=== PATIENT | male | born 1960 | race Caucasian/White ===

== ENCOUNTER 2022-09-26 13:29 | Inpatient (IN) | payer MEDICAID, SELFPAY ==
[2022-09-26] VITALS (24 sets, daily range): BP systolic 150–177; BP diastolic 87–121; PULSE 84–114; RESP 18–22; TEMP 36.4–36.7; O2SAT 88–99; BMI 32.9; BMI 31.5
--- NOTE | 2022-09-26 13:59 | CRLHL7_ITS ---
For Patients: As a result of the Century Cures Act, medical imaging exams and procedure reports are released immediately into your electronic medical record. You may view this report before your referring provider. If you have questions, please contact your health care provider. INDICATION: Cough TECHNIQUE: Two view chest. FINDINGS: The lungs are clear. The heart, mediastinum and pulmonary vessels are of normal size. There is no evidence of pleural disease. IMPRESSION: Negative chest. Dictated by Ewa Clinton MD @ 09/26/2022 2:30:01 PM (Electronically Signed)
[2022-09-26] MEDS: IPRAT-ALBUT 0.5-2.5 MG/3 ML NEB 1 NEB IH ×3 (14:35→23:42)
[2022-09-26 14:53] LABS: ABG PCO2 44 mmHG (35-45); Base Excess ABG 3.1 mmol/L (-3.0-3.0); Carboxyhemoglobin* 2.8 % (0.0-5.0); HCO3 ABG 28 mmol/L (21-28); pH ABG 7.42 (7.35-7.45)
[2022-09-26 14:55] LABS: Basophils Absolute Auto 0.09 K/uL (0.00-0.30); Basophils Percent Auto 0.9 % (0.0-3.0); Eosinophils Percent Auto 9.5 % (0.0-7.0); Hematocrit 56.2 % (37.0-53.0); Hemoglobin* 19.4 gm/dL (13.5-17.5); Immature Granulocytes Abs Auto 0.05 K/uL (0.00-0.30); Immature Granulocytes Pct Auto 0.5 %; Lymphocytes Absolute Auto 2.01 K/uL (0.90-2.90); Lymphocytes Percent Auto 20.2 % (20-44); Mean Corpuscular HGB Conc 35 gm/dL (32-36); Mean Corpuscular Hemoglobin 35 pg (26-34); Mean Corpuscular Volume 101 fL (80-100); Monocytes Percent Auto 7.4 % (0.0-11.0); Neutrophils Absolute Auto 6.11 K/uL (1.7-7.0); Neutrophils Percent Auto 61.5 % (42.0-72.0); Platelet Count* 204 K/uL (140-440); RDW Coefficient of Variation % 16.2 % (11.5-15.5); Red Blood Count 5.57 m/uL (4.30-5.90); White Blood Count* 9.94 K/uL (4.50-11.00)
[2022-09-26 14:57] LABS: Slide Review Reflex No
[2022-09-26 15:12] LABS: PCR FLU A Negative PCR FLU A (Negative); PCR FLU B Negative PCR FLU B (Negative); PCR RSV Negative PCR RSV (Negative)
[2022-09-26 15:20] LABS: D Dimer Quantitative* < 0.27 ug/ml (0.00-0.50)
[2022-09-26 15:22] LABS: INR 1.01 (0.91-1.10); Partial Thromboplastin Time* 31 Seconds (23-33); Prothrombin Time 13.9 Seconds
[2022-09-26 15:23] LABS: SARS PCR* Negative SARS-CoV-2 (Negative)
--- NOTE | 2022-09-26 15:42 | RESP.RT ---
Pt seen in ED. Doing a nebulizer. ON RA, SPO2 96% BBS diminished with scattered expiratory wheezing. States he does not smoke, but the odor was on him. Then stated he cheats at times. ABG drawn on RA. RCAT scores him at 7, would be more aggressive and do scheduled nebs around the clock for the first day.
--- NOTE | 2022-09-26 16:07 | ED_ITS ---
HPI - SOB/Dyspnea General Date Seen: 09/26/22 Chief Complaint: Shortness of Breath/Dyspnea Stated Complaint: Copd Trouble Breathing Time Seen by Provider: 09/26/22 13:52 Source: patient Mode of arrival: ambulatory Limitations: no limitations History of Present Illness HPI Narrative: This patient is a 62-year-old gentleman who I know quite well from previous visits to the emergency room, somewhat of a poorly controlled asthmatic, comes in with increasing shortness of breath. Over a course of about 7-10 days. Using his MDI albuterol probably every 2 hours he tells me. He ran out of his inhaled corticosteroid about 10 days ago. Initially told me that he a quit smoking with then confessed that he is still smoking irregularly. Denies any leg swelling, denies any chest pain, there has been no vomiting, no abdominal pain, he has no productive cough of any sputum, no fevers chills or sweats. No leg swelling. MD elicited complaint: shortness of breath Pertinent past history: COPD and asthma Onset (ago): day(s) Context: medication noncompliance Severity: moderate Exacerbating factors: lying flat, movement and deep breaths Relieving factors: bronchodilators and upright position Known history of: COPD and asthma Associated symptoms: denies other symptoms Treatment prior to arrival: none Related Data Home oxygen amount: none Home Medications Medication Instructions Recorded Confirmed albuterol sulfate 90 mcg/actuation 1 puff inhalation QID PRN dyspnea 09/26/22 09/26/22 aerosol inhaler (Ventolin HFA) amlodipine 5 mg tablet 5 mg PO DAILY 09/26/22 09/26/22 cyanocobalamin (vitamin B-12) 1,000 mcg PO DAILY 09/26/22 09/26/22 1,000 mcg tablet fluticasone propionate 220 1 puff inhalation BID 09/26/22 09/26/22 mcg/actuation HFA aerosol inhaler (Flovent HFA) folic acid 1 mg tablet 1 mg PO DAILY 09/26/22 09/26/22 lansoprazole 15 mg capsule,delayed 15 mg PO DAILY 09/26/22 09/26/22 release lisinopril 20 mg tablet 20 mg PO DAILY 09/26/22 09/26/22 umeclidinium 62.5 mcg-vilanterol 1 inh inhalation DAILY 09/26/22 09/26/22 25 mcg/actuation powdr for inhalation (Anoro Ellipta) Allergies Allergy/AdvReac Type Severity Reaction Status Date / Time No Known Drug Allergies Allergy Verified 09/26/22 13:53 Review of Systems Status of ROS: Reports: 10 or more systems reviewed and unremarkable except as noted in History and below [facility] Social History Smoking Status: Never smoker Do you use any of these nicotine containing products: None Second hand tobacco smoke exposure: No How often do you have a drink containing alcohol: 2-3 times a week How many standard drinks containing alcohol do you have on a typical day: 3 or 4 AUDIT-C Alcohol total score: 4 Non-prescribed substance use: denies use Exam Narrative: Exam Narrative: Patient is seen in room 2, he is speaking to me in partial sentences, he has a little bit tripoding, when ice talk to him. His pupils are equal round reactive to light, there is no scleral icterus redness, TMs are normal oropharynx normal, chest is hyperinflated, moving air poorly, with occasional wheezes noted. No crackles are noted, heart sounds are distant and faint, but S1-S2 is normal there is no S3-S4 clicks murmurs or gallops, abdomen is soft and obese there is no guarding, no tenderness to palpation, no organomegaly, skin reveals no redness or rashes, there is no pitting edema, and negative Homans signs, neurologically intact in his upper lower extremities proximal and distal muscle groups are assessed and normal, he moves all extremities independently well. Const: Vital Signs, click to edit/add: Vital Signs - 24 hr 09/26/22 13:47 09/26/22 14:32 Temperature 97.9 F Pulse Rate [Pulse Oximeter] 94 Respiratory Rate 22 Blood Pressure [Le ft Upper Arm] 171/108 H Pulse Oximetry 92 Oxygen Delivery Me thod Room Air Room Air Fraction of Inspir ed Oxygen 21 Documenting provider has reviewed patient's vital signs: yes Course Vital Signs Vital signs: Initial Vital Signs Temperature 97.9 F 09/26/22 13:47 Temperature Source Temporal Artery Scan 09/26/22 13:47 Pulse Rate 94 09/26/22 13:47 Respiratory Rate 22 09/26/22 13:47 Blood Pressure 171/108 H 09/26/22 13:47 Blood Pressure Mean 129 09/26/22 13:47 Blood Pressure Position Sitting 09/26/22 13:47 Pulse Oximetry 92 09/26/22 13:47 Oxygen Delivery Method Room Air 09/26/22 13:47 Vital Signs Temperature 97.9 F 09/26/22 13:47 Pulse Rate 94 09/26/22 13:47 Respiratory Rate 22 09/26/22 13:47 Blood Pressure 171/108 H 09/26/22 13:47 Pulse Oximetry 92 09/26/22 13:47 Oxygen Delivery Method Room Air 09/26/22 13:47 Temperature 97.9 F 09/26/22 13:47 Pulse Rate 94 09/26/22 13:47 Respiratory Rate 22 09/26/22 13:47 Blood Pressure 171/108 H 09/26/22 13:47 Pulse Oximetry 92 09/26/22 13:47 Oxygen Delivery Method Room Air 09/26/22 14:32 Fraction of Inspired Oxygen 21 09/26/22 14:32 MDM - SOB/Dyspnea MDM Narrative Medical decision making narrative: Life-threatening differential diagnosis includes occluded COPD exacerbation, pulmonary edema, acute coronary syndromes, pulmonary embolism, pneumonia, and pneumothorax. Other differential diagnosis considerations include asthma, bronchitis as well as other etiologies Differential Diagnosis Differential diagnosis: Likely acute exacerbation of chronic obstructive airways disease, congestive heart failure, community acquired pneumonia, asthma with exacerbation and pulmonary embolism Medical Records Attestation: I reviewed the patient's medical records. Lab Data Attestation: I reviewed the patient's lab results. Labs: Lab Results 09/26/22 09/26/22 Range/Units 14:25 14:40 WBC 9.94 (4.50-11.00) K/uL RBC 5.57 (4.30-5.90) m/uL Hgb 19.4 H (13.5-17.5) gm/dL Hct 56.2 H (37.0-53.0) % MCV 101 H (80-100) fL MCH 35 H (26-34) pg MCHC 35 (32-36) gm/dL RDW Coeff of Dee 16.2 H (11.5-15.5) % Plt Count 204 (140-440) K/uL Neut % (Auto) 61.5 (42.0-72.0) % Lymph % (Auto) 20.2 (20-44) % [place] % (Auto) 7.4 (0.0-11.0) % Eos % (Auto) 9.5 H (0.0-7.0) % Baso % (Auto) 0.9 (0.0-3.0) % Neut # (Auto) 6.11 (1.7-7.0) K/uL Lymph # (Auto) 2.01 (0.90-2.90) K/uL [place] # (Auto) 0.70 (0.00-0.90) K/UL Eos # (Auto) 0.90 H (0.00-0.50) K/uL Baso # (Auto) 0.09 (0.00-0.30) K/uL INR 1.01 (0.91-1.10) APTT 31 (23-33) Seconds D-Dimer Quant (PE/DVT) < 0.27 (0.00-0.50) ug/ml ABG pH 7.42 (7.35-7.45) ABG pCO2 44 (35-45) mmHG ABG pO2 174.0 H (80-105) mmHG ABG HCO3 28 (21-28) mmol/L ABG Total CO2 (21-30) mmol/l ABG O2 Saturation (92-100) % ABG Base Excess 3.1 H (-3.0-3.0) mmol/L Carboxyhemoglobin 2.8 (0.0-5.0) % SARS-CoV-2 (PCR) Negative SARS-CoV-2 (Negative) Influenza Type A (PCR) Negative PCR FLU A (Negative) Influenza Type B (PCR) Negative PCR FLU B (Negative) RSV (PCR) Negative PCR RSV (Negative) POC Troponin I 0.00 L (0.01-0.04) ng/ml ABG Data ABG results: I reviewed the ABG results which show a high PO2, low CO2, a little bit of alkalosis, the high p.o. CO2 at 174, was significantly higher than I predicted in the reason for this was the fact that he was on oxygen getting a neb when they took his gas. Attestation: I personally reviewed and interpreted this ABG as follows: Imaging Data Chest x-ray: Attestation: I have reviewed the pertinent imaging results. My impression: Chest x-ray showed no acute findings Radiologist's impression: Patient: ROBIN RIVERA Facility:?[facility] Patient ID:?[id number] Site Patient ID:?[id number]. Site :?[id number] Study:?XRay Chest 1 VIEW PORTABLE-09/26/2022 2:28:59 PM Ordering Physician:Андрей Phillips Final Report: INDICATION: Cough TECHNIQUE: Two view chest. FINDINGS: The lungs are clear. The heart, mediastinum and pulmonary vessels are of normal size. There is no evidence of pleural disease. IMPRESSION: Negative chest. Dictated by Ewa Clinton MD @ 09/26/2022 2:30:01 PM (Electronic Signature) ECG Data Attestation: I personally reviewed and interpreted this ECG as follows: ECG interpretation date: 09/26/22 Interpretation: EKG for patient shows normal sinus rhythm, no acute ST wave changes, QRS QT and MI intervals are normal, ventricular rate 89 Discharge Plan Discharge Clinical Impression: Acute infective exacerbation of chronic obstructive airway disease, Asthma with acute exacerbation Patient Disposition: Admitted As Inpatient Condition: Stable Prescriptions: No Action lisinopril 20 mg tablet 20 mg PO DAILY cyanocobalamin (vitamin B-12) 1,000 mcg tablet 1,000 mcg PO DAILY amlodipine 5 mg tablet 5 mg PO DAILY lansoprazole 15 mg capsule,delayed release(DR/EC) 15 mg PO DAILY folic acid 1 mg tablet 1 mg PO DAILY fluticasone propionate [Flovent HFA] 220 mcg/actuation HFA aerosol inhaler 1 puff INHALATION BID albuterol sulfate [Ventolin HFA] 90 mcg/actuation HFA aerosol inhaler 1 puff INHALATION QID PRN (Reason: dyspnea) Anoro Ellipta 62.5-25 mcg/actuation blister with device 1 ea INHALATION DAILY Follow Up/Referrals: Destiny Oropeza DO [Primary Care Provider] -
--- NOTE | 2022-09-26 16:11 | RESP.RT ---
ABGs noted, Pt with high PO2 PT had just finished a neb when ABG drawn. Based on the room the pt was in the neb was given via oxygen.
[2022-09-26] MEDS: METHYLPREDNISOLONE SOD SUCC 62.5 MG/ML (125) 125 MG IVP ×2 (16:20→21:34)
[2022-09-26] MEDS: ALBUTEROL SULFATE 2.5 MG/3 ML VIAL.NEB NEB (16:20)
--- NOTE | 2022-09-26 16:34 | ED.NURSE ---
Dr. Christensen at bedside.
[2022-09-26 17:12] LABS: Chloride* 105 mmol/L (96-114); Potassium* 3.4 mmol/L (3.6-5.1); Sodium* 136 mmol/L (135-149)
--- NOTE | 2022-09-26 17:12 | PM.IMHP1 ---
Hospitalist- H&P: HPI History of Present Illness Time Seen by Provider: 16:30 Date Seen: 09/26/22 Chief complaint: Copd Trouble Breathing Narrative: Vineet Messina is a 62 year old man with known COPD and history of exacerbations who presents with a 2 day history of increasing dyspnea including worsening dyspnea with exertion and now even at rest. Notes increased wheezing. Has more cough sometimes productive of clear sputum. Denies hemoptysis or purulent sputum. Denies fevers, rigors, diaphoresis. Denies chest heaviness, pressure, tightness, or pain. Denies syncope or near-syncope. Denies lower extremity edema. Continues to smoke roughly 5 cigarettes per day. Tells me he drinks about 2 beers per day 5 days per week. Importantly he tells me that he ran out of his inhaled corticosteroid roughly 10 days ago. He states he could not afford to buy it. Has been trying to Employee his albuterol metered-dose inhaler every 2 hours but has not been adequately successful for him. Thus he presents today. Review of Systems Status of ROS: Reports: 10 or more systems reviewed and unremarkable except as noted in History and below Narrative: Denies nausea, vomiting, at dyspepsia, dysphagia, odynophagia, diarrhea, or constipation. Denies dysuria, urgency, frequency, hematuria. Denies polyuria, polydipsia, polyphagia. Denies night sweats. Denies weight gain or weight loss. No focal motor neurologic deficits. No rashes or swelling. Denies myalgias or arthralgias. No recent travel, trauma, injury, or illness. [facility] Medical History Adjustment disorder with depressed mood ?F43.21 - Adjustment disorder with depressed mood (ICD-10) Alcohol use ?Z78.9 - Other specified health status (ICD-10) Dyslipidemia ?E78.5 - Hyperlipidemia, unspecified (ICD-10) Essential hypertension ?I10 - Essential (primary) hypertension (ICD-10) Fatty liver disease, nonalcoholic ?K76.0 - Fatty (change of) liver, not elsewhere classified (ICD-10) Gastroesophageal reflux disease ?K21.9 - Gastro-esophageal reflux disease without esophagitis (ICD-10) Obesity (BMI 30.0-34.9) ?E66.9 - Obesity, unspecified (ICD-10) Seasonal allergies ?J30.2 - Other seasonal allergic rhinitis (ICD-10) Stage 2 moderate COPD by GOLD classification ?J44.9 - Chronic obstructive pulmonary disease, unspecified (ICD-10) Tobacco use disorder ?F17.200 - Nicotine dependence, unspecified, uncomplicated (ICD-10) Surgical History Status post colonoscopy with polypectomy ?Z98.890 - Other specified postprocedural states (ICD-10) Status post tonsillectomy and adenoidectomy ?Z90.89 - Acquired absence of other organs (ICD-10) Family History Brother Diabetes Maternal Grandmother Diabetes Heart disease Social History Narrative: Lives with his brother. Has not worked many years due to his chronic obstructive pulmonary disease. Used to work as a cook. Smoking about 5 cigarettes per day. Tells me he drinks 2 beers per day, maybe 5 days week. Denies alcohol withdrawal symptoms. Denies use of any other street or recreational drugs, including marijuana. Designates his sister, Janine, as his power of archivist economic history for health should that be required. Requests full resuscitation in the event of cardiopulmonary demise. Primary care physician is Dr. Oropeza, in [place], [place]. Smoking Status: Never smoker Do you use any of these nicotine containing products: None Second hand tobacco smoke exposure: No How often do you have a drink containing alcohol: 2-3 times a week How many standard drinks containing alcohol do you have on a typical day: 3 or 4 AUDIT-C Alcohol total score: 4 Non-prescribed substance use: denies use Meds Home Medications and Allergies Home Medications Medication Instructions Recorded Confirmed Type albuterol sulfate 90 mcg/actuation 1 puff inhalation QID PRN dyspnea 09/26/22 09/26/22 History aerosol inhaler (Ventolin HFA) amlodipine 5 mg tablet 5 mg PO DAILY 09/26/22 09/26/22 History cyanocobalamin (vitamin B-12) 1,000 mcg PO DAILY 09/26/22 09/26/22 History 1,000 mcg tablet fluticasone propionate 220 1 puff inhalation BID 09/26/22 09/26/22 History mcg/actuation HFA aerosol inhaler (Flovent HFA) folic acid 1 mg tablet 1 mg PO DAILY 09/26/22 09/26/22 History lansoprazole 15 mg capsule,delayed 15 mg PO DAILY 09/26/22 09/26/22 History release lisinopril 20 mg tablet 20 mg PO DAILY 09/26/22 09/26/22 History umeclidinium 62.5 mcg-vilanterol 1 inh inhalation DAILY 09/26/22 09/26/22 History 25 mcg/actuation powdr for inhalation (Anoro Ellipta) Allergies Allergy/AdvReac Type Severity Reaction Status Date / Time No Known Drug Allergies Allergy Verified 09/26/22 13:53 Exam Narrative: Exam Narrative: By the time I see him he appears more comfortable. He has breathing at a rate of 24 breaths per minute at rest. He just completed the bronchodilator nebulizer therapy treatment. Is in no acute distress. Smells strongly of tobacco smoke. Alert, oriented to self, place, time, situation. Friendly, articulate, cooperative. Mood and affect are congruent. Vision and hearing are grossly normal. Normal tympanic membranes. Midline nasal septum. Dentition in fair repair. Dry buccal mucosa. No mucosal lesions. Normal conjunctiva. No icterus. Pupils equally round reactive to light and accommodation. Extraocular muscles are intact. Neck is supple. Midline trachea. No JVD or hepatojugular reflux. No carotid bruits. No adenopathy in the pre or postauricular chains, anterior or posterior cervical chains, submandibular or submental fossa, supra or infraclavicular fossa, or axilla bilaterally. Lungs with scattered wheezing and prolonged expiratory phase. Scattered rhonchi. Rhonchi clear in part with coughing. No rales. No CVA tenderness. Heart tones with regular rhythm, normal S1-S2, without murmur, gallop, or rub. Abdomen is obese with active bowel sounds, soft, nontender, nondistended. No rebound or guarding. Trace edema pretibially bilaterally. Independent transfer, station, and gait. No focal motor neurologic deficits. No tremor, asterixis, or ataxia. Skin is intact without rashes, cyanosis, petechiae, jaundice. Const: Vital Signs, click to edit/add: Vital Signs - 24 hr 09/26/22 13:47 09/26/22 14:32 09/26/22 16:37 Temperature 97.9 F Pulse Rate Pulse Rate [Left P ulse Oximeter] Pulse Rate [Pulse Oximeter] 94 Respiratory Rate 22 Blood Pressure Blood Pressure [Le ft Arm] Blood Pressure [Le ft Upper Arm] 171/108 H Pulse Oximetry 92 94 Oxygen Delivery Me thod Room Air Room Air Nasal Cannula Oxygen Flow Rate 2 Fraction of Inspir ed Oxygen 21 09/26/22 14:14 09/26/22 14:15 09/26/22 14:30 Temperature Pulse Rate 97 92 92 Pulse Rate [Left P ulse Oximeter] Pulse Rate [Pulse Oximeter] Respiratory Rate Blood Pressure Blood Pressure [Le ft Arm] Blood Pressure [Le ft Upper Arm] Pulse Oximetry 89 92 91 Oxygen Delivery Me thod Room Air Oxygen Flow Rate Fraction of Inspir ed Oxygen 09/26/22 14:33 09/26/22 14:45 09/26/22 15:00 Temperature Pulse Rate 92 84 114 H Pulse Rate [Left P ulse Oximeter] Pulse Rate [Pulse Oximeter] Respiratory Rate Blood Pressure 177/121 H Blood Pressure [Le ft Arm] Blood Pressure [Le ft Upper Arm] Pulse Oximetry 92 98 92 Oxygen Delivery Me thod Aerosol Mask Room Air Oxygen Flow Rate 4 Fraction of Inspir ed Oxygen 09/26/22 15:03 09/26/22 15:15 09/26/22 15:30 Temperature Pulse Rate 92 93 94 Pulse Rate [Left P ulse Oximeter] Pulse Rate [Pulse Oximeter] Respiratory Rate Blood Pressure 151/97 H Blood Pressure [Le ft Arm] Blood Pressure [Le ft Upper Arm] Pulse Oximetry 92 89 89 Oxygen Delivery Me thod Oxygen Flow Rate Fraction of Inspir ed Oxygen 09/26/22 15:32 09/26/22 15:45 09/26/22 16:00 Temperature Pulse Rate 92 93 101 H Pulse Rate [Left P ulse Oximeter] Pulse Rate [Pulse Oximeter] Respiratory Rate Blood Pressure 153/92 H Blood Pressure [Le ft Arm] Blood Pressure [Le ft Upper Arm] Pulse Oximetry 88 90 88 Oxygen Delivery Me thod Oxygen Flow Rate Fraction of Inspir ed Oxygen 09/26/22 16:03 09/26/22 16:15 09/26/22 16:30 Temperature Pulse Rate 93 92 92 Pulse Rate [Left P ulse Oximeter] Pulse Rate [Pulse Oximeter] Respiratory Rate Blood Pressure 174/100 H Blood Pressure [Le ft Arm] Blood Pressure [Le ft Upper Arm] Pulse Oximetry 91 90 99 Oxygen Delivery Me thod Aerosol Mask Oxygen Flow Rate 4 Fraction of Inspir ed Oxygen 09/26/22 16:32 09/26/22 16:33 09/26/22 16:57 Temperature 98.1 F Pulse Rate 95 94 Pulse Rate [Left P ulse Oximeter] 90 Pulse Rate [Pulse Oximeter] Respiratory Rate 18 Blood Pressure 158/99 H Blood Pressure [Le ft Arm] 161/97 H Blood Pressure [Le ft Upper Arm] Pulse Oximetry 99 99 92 Oxygen Delivery Me thod Aerosol Mask Nasal Cannula Nasal Cannula Oxygen Flow Rate 4 2 2 Fraction of Inspir ed Oxygen Hospitalist - H&P: Result Labs Labs: Short CBC 09/26/22 Range/Units 14:25 WBC 9.94 (4.50-11.00) K/uL Hgb 19.4 H (13.5-17.5) gm/dL Hct 56.2 H (37.0-53.0) % Plt Count 204 (140-440) K/uL ECG Attestation: I personally reviewed and interpreted this ECG as follows: ECG interpretation date: 09/26/22 ECG interpretation time: 16:30 Prior ECG tracings: not available for review Interpretation: No was sinus rhythm. No ischemic or infarct changes. Imaging Chest x-ray: Attestation: I have reviewed the pertinent imaging results. Radiologist's impression: Lungs are clear. No infiltrate, effusion, pneumothorax. Assessment and Plan Assessment and plan (1) COPD exacerbation: Status: Acute (2) Acute respiratory failure with hypoxia: Status: Acute (3) Tobacco use disorder: Status: Acute (4) Stage 2 moderate COPD by GOLD classification: Status: Acute (5) Alcohol use: Status: Acute Plan 1. Reviewed impression with patient. 2. Discussed with Dr. Linn. 3. Admit to observation. 4. Oxygen supplementation, bronchodilators, corticosteroids, respiratory therapy consultation. 5. Resume his usual meds including his inhaled corticosteroid. 6. Monitor labs, oxygen needs. 7. Patient agreeable to above stated plans and recommendations.
[2022-09-26 17:15] LABS: Blood Urea Nitrogen* 6 mg/dL (7-30); Creatinine* 0.6 mg/dL (0.5-1.5); Est. Creatinine Clearance* 71.61; Estimated Glomerular Filt Rate 109 ml/min; Glucose* 109 mg/dL (60-115)
[2022-09-26 17:16] LABS: Calcium* 9.1 mg/dL (8.4-10.6)
[2022-09-26 17:30] LABS: NT Pro B Type NatriureticPept* 149 pg/mL
[2022-09-26 17:32] LABS: Carbon Dioxide* 20 mmol/L (20-32)
--- NOTE | 2022-09-26 19:01 | PC.NURSE ---
Pt admit to unit from ED at 1645, pt alert and oriented, pleasant and cooperative. BP elevated at 161/97, HR 90s-low 100s, NSR to sinus tach. Pt denies pain. Ind in room, continent. On 2gm NA diet, pt aware and tolerating, ate 100% of dinner. 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 Sating 88-89% on RA, on 2L to maintain 90%. Pt received scheduled neb this evening, tolerated. Pt states improvement in breathing with neb treatment. Pt has call light within reach and uses appropriately.
[2022-09-26] MEDS: ENOXAPARIN 30 MG/0.3ML INJ SUBCUT (21:33)
[2022-09-26] MEDS: POTASSIUM CHLORIDE 10 MEQ CAPSULE ER 40 MEQ PO (21:34)
[2022-09-26] MEDS: SODIUM CHLORIDE 0.9 % (FLUSH) 10 ML SYRINGE 5 ML IVF (21:35)
[2022-09-27] VITALS (12 sets, daily range): BP systolic 127–161; BP diastolic 73–117; PULSE 69–97; RESP 18–20; TEMP 36.6–36.9; O2SAT 94–97
[2022-09-27 06:16] LABS: HCO3 VBG 32 mmol/L (21-28); PCO2 VBG 55 mmHG (40-50); PO2 VBG 26.4 mmHG (25-47); pH VBG 7.371 (7.32-7.43)
[2022-09-27 06:28] LABS: Basophils Absolute Auto 0.02 K/uL (0.00-0.30); Basophils Percent Auto 0.2 % (0.0-3.0); Eosinophils Absolute Auto 0.01 K/uL (0.00-0.50); Eosinophils Percent Auto 0.1 % (0.0-7.0); Hemoglobin* 19.5 gm/dL (13.5-17.5); Immature Granulocytes Abs Auto 0.07 K/uL (0.00-0.30); Immature Granulocytes Pct Auto 0.8 %; Mean Corpuscular HGB Conc 34 gm/dL (32-36); Mean Corpuscular Hemoglobin 35 pg (26-34); Mean Corpuscular Volume 101 fL (80-100); Neutrophils Percent Auto 87.9 % (42.0-72.0); Platelet Count* 242 K/uL (140-440); Red Blood Count 5.64 m/uL (4.30-5.90); White Blood Count* 9.12 K/uL (4.50-11.00)
[2022-09-27 06:30] LABS: Slide Review Reflex No
[2022-09-27] MEDS: OMEPRAZOLE 20 MG CAPSULE DR PO (06:32)
[2022-09-27] MEDS: IPRAT-ALBUT 0.5-2.5 MG/3 ML NEB 1 NEB IH ×4 (06:32→23:32)
[2022-09-27 06:39] LABS: Chloride* 102 mmol/L (96-114); Potassium* 4.7 mmol/L (3.6-5.1); Sodium* 137 mmol/L (135-149)
[2022-09-27 06:42] LABS: Creatinine* 0.7 mg/dL (0.5-1.5); Est. Creatinine Clearance* 71.61; Estimated Glomerular Filt Rate 104 ml/min
[2022-09-27 06:43] LABS: Blood Urea Nitrogen* 10 mg/dL (7-30); Calcium* 9.6 mg/dL (8.4-10.6); Carbon Dioxide* 30 mmol/L (20-32); Glucose* 188 mg/dL (60-115); Phosphorus* 3.3 mg/dL (2.5-4.5)
[2022-09-27 06:45] LABS: C Reactive Protein* 0.7 mg/dL (0.5-1.0)
[2022-09-27 06:55] LABS: Troponin I* < 0.01 ng/mL (0.01-0.04)
[2022-09-27 06:59] LABS: Procalcitonin* 0.06 ng/mL (<0.50)
--- NOTE | 2022-09-27 07:28 | PC.NURSE ---
Pt alert and oriented x3. Afebrile. Pt lung sounds are clear but diminished in the posterior lower lobes, O2 Sats have been between 92-96% on 2L, and has been taking scheduled nebs.?Pt denies pain, chest pain, SOB, and N/V. Pt is voiding, tolerating a regular diet, up IND. Pt slept through most of night.??
[2022-09-27] MEDS: AMLODIPINE 5 MG TABLET PO (08:00)
[2022-09-27] MEDS: lisinopriL 20 MG TABLET PO (08:00)
[2022-09-27] MEDS: CYANOCOBALAMIN (VITAMIN B-12) 500 MCG TABLET 1000 MCG PO (08:01)
[2022-09-27] MEDS: predniSONE 20 MG TABLET 40 MG PO (08:01)
[2022-09-27] MEDS: FOLIC ACID 1 MG TABLET PO (08:01)
[2022-09-27 08:09] LABS: Hemoglobin A1C* 5.08 % (0-5.6)
--- NOTE | 2022-09-27 09:53 | PM.IMPN1 ---
Progress Note: A&P Assessment and plan (1) Acute respiratory failure with hypoxia: Problem details: -due to COPD exacerbation. Wean oxygen as appropriate. Currently not on antibiotics. Prednisone burst and taper underway. Work with pharmacy and social media content specialist to help obtain medication as prescribed. Smoking cessation is vital. Status: Acute (2) COPD exacerbation: Problem details: -as above Status: Acute (3) Tobacco use disorder: Problem details: -as above Status: Acute (4) Stage 2 moderate COPD by GOLD classification: Problem details: -noted Status: Acute (5) Alcohol use: Problem details: -noted, complicates compliance Status: Acute (6) Gastroesophageal reflux disease: Problem details: -continue PPI Status: Acute (7) Essential hypertension: Problem details: -continue home lisinopril and amlodipine. Scheduled hydralazine with hold parameters. Status: Acute Subjective Date Seen: 09/27/22 Interval history: Daily Progress Note - Hospital Medicine Day #: 2 CC: COPD exacerbation OVERNIGHT UPDATES FROM STAFF & MED, LAB, IMAGING UPDATES Patient feels a lot better than he did at admission. He received IV steroids in the ED and is now on p.o. prednisone. He is on 1-2 L per nasal cannula oxygen currently. He does not usually use home O2. He describes the frustration he has at for filling his COPD inhalers. Med assistance was discontinued because of his income. He is on state aide her medical insurance. His father recently he said that he went on a Lee of alcohol and cigarettes and was not taking good care of himself. He describes how hard it is that his girlfriend brother and everyone he knows smokes. 145/85. Pulse 96. Resp is 18. Afebrile. O2 sat 95% on 1-2 L per nasal cannula. Hemoglobin 19.5 No elevated white blood cell count MCV 101 Normal platelets INR, troponin, D-dimer, procalcitonin, TSH, A1c all normal PH this morning 7.4, pCO2 a little elevated at 55. Electrolytes reassuring. Chest x-ray from admission was negative. Fluticasone HFA started in place of his Anora Ellipta DuoNebs Prednisone is at 40 mg daily P.r.n. hydralazine Continue home amlodipine and lisinopril Objective: Vitals: Reviewed. He was satting 95-96% on 2 L. see above Lungs: Clear. No wheezes Cardiac: S1S2. No edema Disposition/Potential discharge - Likely to return to previous living situation. Total time is 35 minutes with greater than 50% spent in counseling and coordination of care. Exam Const: Vital Signs, click to edit/add: Vital Signs - 24 hr 09/26/22 13:47 09/26/22 14:32 09/26/22 16:37 Temperature 97.9 F Pulse Rate Pulse Rate [Left P ulse Oximeter] Pulse Rate [Pulse Oximeter] 94 Respiratory Rate 22 Blood Pressure Blood Pressure [Le ft Arm] Blood Pressure [Le ft Upper Arm] 171/108 H Pulse Oximetry 92 94 Oxygen Delivery Me thod Room Air Room Air Nasal Cannula Oxygen Flow Rate 2 Fraction of Inspir ed Oxygen 09/26/22 14:14 09/26/22 14:15 09/26/22 14:30 Temperature Pulse Rate 97 92 92 Pulse Rate [Left P ulse Oximeter] Pulse Rate [Pulse Oximeter] Respiratory Rate Blood Pressure Blood Pressure [Le ft Arm] Blood Pressure [Le ft Upper Arm] Pulse Oximetry 89 92 91 Oxygen Delivery Me thod Room Air Oxygen Flow Rate Fraction of Inspir ed Oxygen 09/26/22 14:33 09/26/22 14:45 09/26/22 15:00 Temperature Pulse Rate 92 84 114 H Pulse Rate [Left P ulse Oximeter] Pulse Rate [Pulse Oximeter] Respiratory Rate Blood Pressure 177/121 H Blood Pressure [Le ft Arm] Blood Pressure [Le ft Upper Arm] Pulse Oximetry 92 98 92 Oxygen Delivery Me thod Aerosol Mask Room Air Oxygen Flow Rate 4 Fraction of Inspir ed Oxygen 09/26/22 15:03 09/26/22 15:15 09/26/22 15:30 Temperature Pulse Rate 92 93 94 Pulse Rate [Left P ulse Oximeter] Pulse Rate [Pulse Oximeter] Respiratory Rate Blood Pressure 151/97 H Blood Pressure [Le ft Arm] Blood Pressure [Le ft Upper Arm] Pulse Oximetry 92 89 89 Oxygen Delivery Me thod Oxygen Flow Rate Fraction of Inspir ed Oxygen 09/26/22 15:32 09/26/22 15:45 09/26/22 16:00 Temperature Pulse Rate 92 93 101 H Pulse Rate [Left P ulse Oximeter] Pulse Rate [Pulse Oximeter] Respiratory Rate Blood Pressure 153/92 H Blood Pressure [Le ft Arm] Blood Pressure [Le ft Upper Arm] Pulse Oximetry 88 90 88 Oxygen Delivery Me thod Oxygen Flow Rate Fraction of Inspir ed Oxygen 09/26/22 16:03 09/26/22 16:15 09/26/22 16:30 Temperature Pulse Rate 93 92 92 Pulse Rate [Left P ulse Oximeter] Pulse Rate [Pulse Oximeter] Respiratory Rate Blood Pressure 174/100 H Blood Pressure [Le ft Arm] Blood Pressure [Le ft Upper Arm] Pulse Oximetry 91 90 99 Oxygen Delivery Me thod Aerosol Mask Oxygen Flow Rate 4 Fraction of Inspir ed Oxygen 09/26/22 16:32 09/26/22 16:33 09/26/22 16:57 Temperature 98.1 F Pulse Rate 95 94 Pulse Rate [Left P ulse Oximeter] 90 Pulse Rate [Pulse Oximeter] Respiratory Rate 18 Blood Pressure 158/99 H Blood Pressure [Le ft Arm] 161/97 H Blood Pressure [Le ft Upper Arm] Pulse Oximetry 99 99 92 Oxygen Delivery Me thod Aerosol Mask Nasal Cannula Nasal Cannula Oxygen Flow Rate 4 2 2 Fraction of Inspir ed Oxygen 09/26/22 16:57 09/26/22 18:32 09/26/22 19:50 Temperature Pulse Rate 103 H 103 H Pulse Rate [Left P ulse Oximeter] Pulse Rate [Pulse Oximeter] Respiratory Rate 20 Blood Pressure Blood Pressure [Le ft Arm] Blood Pressure [Le ft Upper Arm] Pulse Oximetry 93 Oxygen Delivery Me thod Nasal Cannula Oxygen Flow Rate 2 Fraction of Inspir ed Oxygen 09/26/22 19:00 09/26/22 23:55 09/26/22 23:55 Temperature 97.6 F Pulse Rate Pulse Rate [Left P ulse Oximeter] 99 99 Pulse Rate [Pulse Oximeter] Respiratory Rate 20 20 20 Blood Pressure Blood Pressure [Le ft Arm] 161/93 H Blood Pressure [Le ft Upper Arm] Pulse Oximetry 93 93 Oxygen Delivery Me thod Nasal Cannula Nasal Cannula Oxygen Flow Rate 2 2 Fraction of Inspir ed Oxygen 09/26/22 23:55 09/27/22 03:00 09/27/22 07:55 Temperature 97.8 F 97.8 F 98.1 F Pulse Rate Pulse Rate [Left P ulse Oximeter] 85 77 96 Pulse Rate [Pulse Oximeter] Respiratory Rate 20 18 18 Blood Pressure Blood Pressure [Le ft Arm] 150/87 H 161/117 H 145/85 H Blood Pressure [Le ft Upper Arm] Pulse Oximetry 94 96 95 Oxygen Delivery Me thod Nasal Cannula Nasal Cannula Nasal Cannula Oxygen Flow Rate 2 2 2 Fraction of Inspir ed Oxygen 09/27/22 07:50 09/27/22 07:00 09/27/22 07:00 Temperature 98.1 F Pulse Rate Pulse Rate [Left P ulse Oximeter] 81 96 Pulse Rate [Pulse Oximeter] Respiratory Rate 18 18 18 Blood Pressure Blood Pressure [Le ft Arm] 145/85 H Blood Pressure [Le ft Upper Arm] Pulse Oximetry 94 95 Oxygen Delivery Me thod Nasal Cannula Nasal Cannula Oxygen Flow Rate 2 2 Fraction of Inspir ed Oxygen 21 Labs Labs: Laboratory Results - last 24 hr 09/26/22 09/26/22 09/27/22 14:25 14:40 05:59 WBC 9.94 9.12 RBC 5.57 5.64 Hgb 19.4 H 19.5 H Hct 56.2 H 57.0 H MCV 101 H 101 H MCH 35 H 35 H MCHC 35 34 RDW Coeff of Dee 16.2 H 16.0 H Plt Count 204 242 Neut % (Auto) 61.5 87.9 H Lymph % (Auto) 20.2 10.0 L [place] % (Auto) 7.4 1.0 Eos % (Auto) 9.5 H 0.1 Baso % (Auto) 0.9 0.2 Neut # (Auto) 6.11 8.00 H Lymph # (Auto) 2.01 0.90 [place] # (Auto) 0.70 0.10 Eos # (Auto) 0.90 H 0.01 Baso # (Auto) 0.09 0.02 INR 1.01 APTT 31 D-Dimer Quant (PE/DVT) < 0.27 ABG pH 7.42 ABG pCO2 44 ABG pO2 174.0 H ABG HCO3 28 ABG Total CO2 ABG O2 Saturation ABG Base Excess 3.1 H VBG pH 7.371 VBG pCO2 55 H VBG pO2 26.4 VBG HCO3 32 H Carboxyhemoglobin 2.8 Sodium 136 137 Potassium 3.4 L 4.7 Chloride 105 102 Carbon Dioxide 20 30 BUN 6 L 10 Creatinine 0.6 0.7 Estimated Creat Clear 71.61 71.61 Estimated GFR 109 104 Glucose 109 188 H Hemoglobin A1c 5.08 Calcium 9.1 9.6 Phosphorus 3.3 Magnesium 2.0 Troponin I < 0.01 L C-Reactive Protein 0.7 NT-Pro-B Natriuret Pep 149 Procalcitonin 0.06 TSH 0.450 SARS-CoV-2 (PCR) Negative SARS-CoV-2 Influenza Type A (PCR) Negative PCR FLU A Influenza Type B (PCR) Negative PCR FLU B RSV (PCR) Negative PCR RSV POC Troponin I 0.00 L
[2022-09-27] MEDS: ACETAMINOPHEN 325 MG TABLET 650 MG PO (13:19)
--- NOTE | 2022-09-27 18:32 | PC.NURSE ---
Patient stable throughout shift. Patient able to voice concerns. Patient attitude and behavior appropriate. Patient remained vitally stable throughout shift. Hydralazine scheduled not given during AM shift due to BPs being outside of range to be given. Patient breathing has improved, but during ambulation patient oxygen saturation decreased to 85% on RA. Patient was asymptomatic but provider states she would like to keep patient another night and possibly give more steroids. Patient has remained on room air throughout shift and oxygen saturations ranging between 92-95%. Incentive spirometry and aerobika introduced to patient and showed return demonstration. Patient independent with cares. Patient call light appropriate.
--- NOTE | 2022-09-27 18:50 | PC.NURSE ---
[id number]: Patient stable throughout shift. Patient able to voice concerns. Patient attitude and behavior appropriate. Patient remained vitally stable throughout shift. Hydralazine scheduled not given during AM shift due to BPs being outside of range to be given. Patient breathing has improved, but during ambulation patient oxygen saturation decreased to 85% on RA. Patient was asymptomatic but provider states she would like to keep patient another night and possibly give more steroids. Patient has remained on room air throughout shift and oxygen saturations ranging between 92-95%. Incentive spirometry and aerobika introduced to patient and showed return demonstration.? Patient is a smoker at home, but refused nicotene replacement during this shift. Patient reports he is ok and nicotene is not needed at this time. Patient independent with cares. Patient call light appropriate.
[2022-09-27] MEDS: ENOXAPARIN 30 MG/0.3ML INJ SUBCUT (20:41)
[2022-09-27] MEDS: SODIUM CHLORIDE 0.9 % (FLUSH) 10 ML SYRINGE 5 ML IVF (20:43)
[2022-09-28 03:00] VITALS: BP 141/90; PULSE 69; RESP 18; TEMP 36.4; O2SAT 96
[2022-09-28] MEDS: SODIUM CHLORIDE 0.9 % (FLUSH) 10 ML SYRINGE 5 ML IVF ×2 (03:28→08:29)
[2022-09-28] MEDS: HYDRALAZINE HCL 20 MG/ML inj 10 MG IVP (03:28)
[2022-09-28] MEDS: IPRAT-ALBUT 0.5-2.5 MG/3 ML NEB 1 NEB IH (06:19)
[2022-09-28] MEDS: OMEPRAZOLE 20 MG CAPSULE DR PO (06:30)
--- NOTE | 2022-09-28 06:47 | PC.NURSE ---
Shift note: Patient is doing well. Systolic Bp has mostly been below 140 except for 0300 and Hydralazine given as per protocol. No SOB and O2> 90 in room air. Pt has had good amount of sleep. Denied any pain or discomfort.
[2022-09-28 07:04] VITALS: PULSE 77
[2022-09-28 07:45] VITALS: BP 128/88; PULSE 108; RESP 20; TEMP 36.3; O2SAT 95
[2022-09-28] MEDS: AMLODIPINE 5 MG TABLET PO (08:29)
[2022-09-28] MEDS: predniSONE 20 MG TABLET 40 MG PO (08:29)
[2022-09-28] MEDS: CYANOCOBALAMIN (VITAMIN B-12) 500 MCG TABLET 1000 MCG PO (08:29)
[2022-09-28] MEDS: FOLIC ACID 1 MG TABLET PO (08:30)
[2022-09-28] MEDS: lisinopriL 20 MG TABLET PO (08:30)
--- NOTE | 2022-09-28 10:19 | P.DS_ITS ---
DS: Providers Provider Date Seen: 09/28/22 Date of admission: 09/27/22 08:54 Primary care physician: Destiny Oropeza DO Admitting Clinician: Ben Manzanares MD Consults: 09/26/22 17:02 Consult to Respiratory Therapy [CONS] Routine Comment: Reason(s) for RT Consult:: Consult Comment: COPD exacerbation, acute hypoxic respiratory failure, tobacco use disorder Attending Physician on discharge: Aundrea Pickens MD [facility] Date of Discharge: 09/28/22 DS: Diagnosis Discharge Diagnosis (1) Acute respiratory failure with hypoxia: Status: Acute Problem details: -weaned to room air. Met discharge criteria on 09/28/2022. Prednisone burst and taper. No antibiotics were indicated. -smoking cessation, medication compliance all stressed. I recommended either getting on a med assistance program for his COPD inhalers and or ordering them from [facility]. Information given. (2) COPD exacerbation: Status: Acute Problem details: -as above (3) Stage 2 moderate COPD by GOLD classification: Status: Acute Problem details: -noted (4) Essential hypertension: Status: Acute Problem details: -continue home lisinopril and amlodipine. (5) Alcohol use: Status: Acute Problem details: -noted, complicates compliance (6) Tobacco use disorder: Status: Acute Problem details: -as above (7) Gastroesophageal reflux disease: Status: Acute Problem details: -continue PPI DS: Summary Hospital Course Hospital Course: HOSPITALIST DISCHARGE SUMMARY ATTENDING PHYSICIAN: Aundrea Pickens MD FINAL DIAGNOSIS: COPD exacerbation Acute respiratory failure with hypoxia and hypercapnia Hypertension Tobacco dependence HOSPITAL FOLLOWUP ISSUES: 1. PCP to help arrange financial assistance for medication compliance 2. Tobacco cessation REFERRALS WHILE ADMITTED: None REFERRALS AFTER DISCHARGE: None BRIEF HOSPITAL COURSE: Juan Pablo is a 62-year-old smoker who presented with a COPD exacerbation. He was hypoxic and hypercapnic at admission. He required 2 L of nasal cannula oxygen to keep his sats greater than 88%. Of note he had not been able to afford his COPD inhalers and in addition he felt his smoking and drinking had increased with the of his father. This all culminated in a COPD exacerbation. Corticosteroid, oxygen support, pulmonary hygiene all helped resolve this acute issue. He met discharge criteria on 09/28/2022 and was in agreement. We ambulated him in the halls off of oxygen and he maintain sats greater than 88%. SUBSTANTIVE NOTATIONS ON IMAGING, LAB, MICROBIOLOGY/PATHOLOGY STUDIES: 124/88. Pulse 108. Rest burst 20. Afebrile. 95% on room air. CBC reflects elevated concentrated hemoglobin likely from years of smoking. Otherwise no signs of leukocytosis or thrombocytopenia. Mild hypercapnia noted on venous blood gas, pCO2 55 Chemistries unremarkable A1c 5 Troponin undetectable BNP 149 TSH normal Echocardiogram: Normal LV size, moderate increased wall thickness, EF 65-70%. Normal RA pressure. DISCHARGE MEDICATIONS: See Reconciled list - SIGNIFICANT CHANGES: Prednisone 40 mg p.o. daily with a long taper until he sees his PCP REVIEW OF SYSTEMS No new chest pain or dyspnea Pain controlled No voiding difficulties Tolerating diet challenge PHYSICAL EXAM: CONSTITUTIONAL: VITAL SIGNS: see record. HEENT: Normocephalic, atraumatic. PERRL, EOMI, conjunctivae pink, no scleral icterus. Ears and nose externally normal. Pharynx normal. NECK: No JVD. No carotid bruit, no thyromegaly, no adenopathy. CHEST: Clear to auscultation bilaterally. HEART: S1 and S2 normal. Edema ABDOMEN: Soft, nontender. Normal bowel sounds. MUSCULOSKELETAL: No gross joint deformity or swelling. NEURO: Cranial nerves intact. Grossly intact. No asymmetric findings. SKIN: No rashes, petechiae, concerning changes PSYCHIATRIC: Mood euthymic. DISPOSITION: Home with family Time spent on discharge 37 minutes. Time spent discussing smoking cessation with patient: more than 10 minutes Status at Discharge Functional status at discharge: independent ambulation Overall status at discharge: patient is not back to baseline Time Spent with Patient Time attestation: Total time spent providing and/or coordinating discharge services: Time spent: Greater than 30 minutes Exam Const: Vital Signs, click to edit/add: Vital Signs - 24 hr 09/27/22 10:29 09/27/22 11:00 09/27/22 14:53 Temperature 97.8 F Pulse Rate Pulse Rate [Left P ulse Oximeter] 96 96 Respiratory Rate 18 18 Blood Pressure [Le ft Arm] 135/95 H Pulse Oximetry 94 97 Oxygen Delivery Me thod Room Air Room Air 09/27/22 14:53 09/27/22 16:00 09/27/22 16:55 Temperature 98.2 F Pulse Rate 97 Pulse Rate [Left P ulse Oximeter] 71 Respiratory Rate 20 Blood Pressure [Le ft Arm] 137/90 H Pulse Oximetry 94 94 Oxygen Delivery Me thod Room Air Room Air 09/27/22 19:00 09/27/22 23:00 09/27/22 23:00 Temperature 98.5 F Pulse Rate Pulse Rate [Left P ulse Oximeter] 83 83 Respiratory Rate 18 18 18 Blood Pressure [Le ft Arm] 135/79 Pulse Oximetry 96 96 Oxygen Delivery Me thod Room Air Room Air 09/27/22 23:00 09/27/22 23:42 09/28/22 03:00 Temperature 97.9 F 97.6 F Pulse Rate 78 Pulse Rate [Left P ulse Oximeter] 69 69 Respiratory Rate 18 18 Blood Pressure [Le ft Arm] 127/73 141/90 H Pulse Oximetry 96 96 Oxygen Delivery Me thod Room Air Room Air 09/28/22 07:45 09/28/22 07:45 09/28/22 07:04 Temperature 97.3 F L Pulse Rate 77 Pulse Rate [Left P ulse Oximeter] 108 H Respiratory Rate 20 20 Blood Pressure [Le ft Arm] 128/88 Pulse Oximetry 95 95 Oxygen Delivery Me thod Room Air Room Air 09/28/22 07:45 Temperature Pulse Rate Pulse Rate [Left P ulse Oximeter] 108 H Respiratory Rate Blood Pressure [Le ft Arm] Pulse Oximetry Oxygen Delivery Me thod Discharge Plan Discharge Disposition: Home, Self-Care Date of Admission: 09/27/22 08:54 Attending Provider on Discharge: Aundrea Pickens Primary Care Provider: Destiny Oropeza Condition: Stable Anticipated Discharge Date/Time: 09/28/22 09:34 Discharge Medications: New ipratropium-albuterol 20-100 mcg/actuation mist 1 puff inhalation Q6H Qty: 4 0RF prednisone 20 mg Tablet 40 mg PO DAILYWM Qty: 21 0RF Rx Instructions: 40mg (2 tabs) for 5 more days. Then 1 tab (20mg) for seven days, then 1/2 tab (10mg) for eight days, followed by a new bottle of 5mg for seven days. prednisone 5 mg tablet 5 mg PO DAILY Qty: 7 0RF Rx Instructions: start after you have finished the taper of the 20mg tablets. Continued lisinopril 20 mg tablet 20 mg PO DAILY cyanocobalamin (vitamin B-12) 1,000 mcg tablet 1,000 mcg PO DAILY amlodipine 5 mg tablet 5 mg PO DAILY lansoprazole 15 mg capsule,delayed release(DR/EC) 15 mg PO DAILY folic acid 1 mg tablet 1 mg PO DAILY fluticasone propionate [Flovent HFA] 220 mcg/actuation HFA aerosol inhaler 1 puff INHALATION BID albuterol sulfate [Ventolin HFA] 90 mcg/actuation HFA aerosol inhaler 1 puff INHALATION QID PRN (Reason: dyspnea) Anoro Ellipta 62.5-25 mcg/actuation blister with device 1 inh INHALATION DAILY Discharge Orders: Discharge Order (Routine); Ordered 09/28/22 Ordered By: Aundrea Pickens Patient Education: Prednisone (By mouth), Ipratropium/Albuterol (By breathing), COPD (Chronic Obstructive Pulmonary Disease) (DC) Additional Instructions: 1. stop smoking completely. You are close to needing oxygen at home and that should be avoided! 2. Get back on your Anora inhaler, reapply for the med assistance program. [facility] in [facility] is a safe option for patients looking to buy medications at much lower prices than the [place]. Often [place] companies send their meds to [facility] [place], [place] and then they are re-sold cheaper than we can find. They don't use insurance and will bill a credit card. They need a prescription from your doctor like any other pharmacy and they are extremely user friendly. Website: [employer] Anora ellipta is sold for as low as $80/mo from this pharmacy (plus shipping) Activity Level: Activity as Tolerated Discharge Diet: Heart Healthy (2 gm sodium, low fat) Follow Up Appointments: Destiny Oropeza DO [Primary Care Provider] - 10/12/22 12:30 pm ([facility] follow up for COPD. Patient will see Dr. Oropeza.) Forms: [employer] Info Instructions
--- NOTE | 2022-09-28 10:27 | PC.NURSE ---
Pt alert and oriented x 4. Pt pleasant and cooperative during shift. Pt independent with ADL?s. Pt walked in hallway to monitor oxygen saturation. After the walk and returning to room Pt was at 88% but within one minute was back to 93% on RA. Hospitalist notified. Pt?s VSS. Pt has telemetry monitoring and strip showed sinus arrhythmia with 1st degree block. Pt?s AM dose of hydralazine held due to BP parameters. Pt to discharge home with brother. Pt IV removed catheter intact.
== END 2022-09-28 10:25 | disposition home or self-care (01) | DRG 189 ==
LOC: ED 16:13 → MEDSURG 16:19
PROVIDERS: Family Medicine; Admitting Provider Internal Medicine; Emergency Provider Family Medicine; PCP Family Medicine; Visit Provider Internal Medicine
DX: J96.01 Acute respiratory failure with hypoxia (principal); J44.1 Chronic obstructive pulmonary disease with (acute) exacerbation; J96.02 Acute respiratory failure with hypercapnia; I10 Essential (primary) hypertension; K21.9 Gastro-esophageal reflux disease without esophagitis; F17.210 Nicotine dependence, cigarettes, uncomplicated; F43.21 Adjustment disorder with depressed mood; E78.5 Hyperlipidemia, unspecified; K76.0 Fatty (change of) liver, not elsewhere classified; E66.9 Obesity, unspecified; J30.2 Other seasonal allergic rhinitis; F10.90 Alcohol use, unspecified, uncomplicated; Z68.30 Body mass index [BMI] 30.0-30.9, adult
CPT/HCPCS: 36415; 36600; 71046; 80048; 82803; 83036; 83735; 83880; 84100; 84145; 84443; 84484; 85025; 85379; 85610; 85730; 86140; 87502; 87634; 87635; 93005; 93306; 94640; 94664; 94761; 99285; G0378; A9270; J0360; J1650; J2930; J7512

== ENCOUNTER 2023-05-19 08:53 | Emergency (ER) | payer MEDICAID, SELFPAY ==
[2023-05-19] VITALS (9 sets, daily range): BP systolic 184; BP diastolic 79; PULSE 73–91; RESP 20–24; TEMP 36.3; O2SAT 90–94; BMI 32.3
--- NOTE | 2023-05-19 09:49 | CRLHL7_ITS ---
For Patients: As a result of the Century Cures Act, medical imaging exams and procedure reports are released immediately into your electronic medical record. You may view this report before your referring provider. If you have questions, please contact your health care provider. INDICATION: SOB TECHNIQUE: PA and lateral. COMPARISON: Chest CT of 08/11/2021 FINDINGS: Mild pulmonary fibrosis, as demonstrated on previous CT. No obvious acute infiltrate. No pleural effusion. Heart size and pulmonary vasculature within normal limits. No significant osseous abnormality. IMPRESSION: 1. Mild pulmonary fibrosis. 2. No obvious acute infiltrate. Dictated by Eamon Frankel MD @ 05/19/2023 11:04:36 AM (Electronically Signed)
[2023-05-19] MEDS: IPRAT-ALBUT 0.5-2.5 MG/3 ML NEB 1 NEB IH (10:15)
[2023-05-19] MEDS: METHYLPREDNISOLONE SOD SUCC 62.5 MG/ML (125) 125 MG IVP (10:15)
--- NOTE | 2023-05-19 10:19 | ED.SOB ---
HPI - SOB/Dyspnea General Date Seen: 05/19/23 Chief Complaint: Shortness of Breath/Dyspnea Stated Complaint: COPD, difficulty breathing Time Seen by Provider: 05/19/23 09:50 Source: patient Mode of arrival: ambulatory Limitations: no limitations History of Present Illness HPI Narrative: Patient is a 62-year-old male current smoker with his COPD presented emergency department for shortness of breath. States symptoms ongoing for the past couple days. At disease in his home nebulizers with minimal improvement in his symptoms. He states this happens to him least once every year to you she was given a breathing treatment and steroids it improves. States it feels just like previous episodes. He is currently a smoker. States at rest he does not feel short of breath but now whenever he moves around he does. That is abnormal for him. Denies any fevers, chills, chest pain, lightheadedness, dizziness, weakness, numbness, abdominal pain. No other concerns at this time. States his COPD exacerbations are usually not associated with infection. Related Data Home Medications Medication Instructions Recorded Confirmed albuterol sulfate 90 mcg/actuation 1 puff inhalation QID PRN dyspnea 09/26/22 09/26/22 aerosol inhaler (Ventolin HFA) amlodipine 5 mg tablet 5 mg PO DAILY 09/26/22 09/26/22 cyanocobalamin (vitamin B-12) 1,000 mcg PO DAILY 09/26/22 09/26/22 1,000 mcg tablet fluticasone propionate 220 1 puff inhalation BID 09/26/22 09/26/22 mcg/actuation HFA aerosol inhaler (Flovent HFA) folic acid 1 mg tablet 1 mg PO DAILY 09/26/22 09/26/22 lansoprazole 15 mg capsule,delayed 15 mg PO DAILY 09/26/22 09/26/22 release lisinopril 20 mg tablet 20 mg PO DAILY 09/26/22 09/26/22 umeclidinium 62.5 mcg-vilanterol 1 inh inhalation DAILY 09/26/22 09/26/22 25 mcg/actuation powdr for inhalation (Anoro Ellipta) Previous Rx's Medication Instructions Recorded ipratropium 20 mcg-albuterol 100 1 puff inhalation Q6H #4 grams 09/27/22 mcg/actuation mist for inhalation prednisone 20 mg tablet 40 mg (2 x 20 mg) PO DAILYWM #21 09/28/22 tabs prednisone 5 mg tablet 5 mg PO DAILY #7 tabs 09/28/22 prednisone 20 mg tablet 40 mg (2 x 20 mg) PO DAILY #10 tabs 05/19/23 Allergies Allergy/AdvReac Type Severity Reaction Status Date / Time No Known Drug Allergies Allergy Verified 09/26/22 13:53 Review of Systems Status of ROS: Reports: 10 or more systems reviewed and unremarkable except as noted in History and below [facility] Medical History (Updated 05/19/23 @ 11:48 by Eric Meyer DO) Alcohol use ?Z78.9 - Other specified health status (ICD-10) Seasonal allergies ?J30.2 - Other seasonal allergic rhinitis (ICD-10) Gastroesophageal reflux disease ?K21.9 - Gastro-esophageal reflux disease without esophagitis (ICD-10) Dyslipidemia ?E78.5 - Hyperlipidemia, unspecified (ICD-10) Fatty liver disease, nonalcoholic ?K76.0 - Fatty (change of) liver, not elsewhere classified (ICD-10) Obesity (BMI 30.0-34.9) ?E66.9 - Obesity, unspecified (ICD-10) Essential hypertension ?I10 - Essential (primary) hypertension (ICD-10) Adjustment disorder with depressed mood ?F43.21 - Adjustment disorder with depressed mood (ICD-10) Tobacco use disorder ?F17.200 - Nicotine dependence, unspecified, uncomplicated (ICD-10) Stage 2 moderate COPD by GOLD classification ?J44.9 - Chronic obstructive pulmonary disease, unspecified (ICD-10) Surgical History Status post tonsillectomy and adenoidectomy ?Z90.89 - Acquired absence of other organs (ICD-10) Status post colonoscopy with polypectomy ?Z98.890 - Other specified postprocedural states (ICD-10) Family History Brother Diabetes Maternal Grandmother Diabetes Heart disease Social History Narrative: Lives with his brother. Has not worked many years due to his chronic obstructive pulmonary disease. Used to work as a cook. Smoking about 5 cigarettes per day. Tells me he drinks 2 beers per day, maybe 5 days week. Denies alcohol withdrawal symptoms. Denies use of any other street or recreational drugs, including marijuana. Designates his sister, Janine, as his power of workers compensation defense attorney for health should that be required. Requests full resuscitation in the event of cardiopulmonary demise. Primary care physician is Dr. Oropeza, in [place], [place]. Highest level of school completed/degree received: 12th grade, no diploma Smoking Status: Never smoker Do you use any of these nicotine containing products: None Second hand tobacco smoke exposure: No How often do you have a drink containing alcohol: 2-3 times a week How many standard drinks containing alcohol do you have on a typical day: 3 or 4 AUDIT-C Alcohol total score: 4 Non-prescribed substance use: denies use Caffeine: Yes service: No Exam Narrative: Exam Narrative: Const: Well-nourished, Well-developed, in mild distress Eyes: PERRL, no conjunctival injection, and symmetrical lids HENT: Atraumatic external nose and ears. Moist mucous membranes. Neck: Symmetric, trachea midline, No thyromegaly. CVS: RRR, No murmurs or gallops. Peripheral pulses 2+ and equal in all extremities RESP: Unlabored respiratory effort. Mild wheezing throughout GI: Nontender/Nondistended, No rebound or guarding. MSK:Extremities w/o deformity, Normal Active ROM Skin: Warm, Dry. No rashes or lesions. Neuro: Normal Muscle tone, No focal neurological deficits. Psych: Awake, Alert, & Oriented x3. Appropriate mood and affect. Const: Vital Signs, click to edit/add: Vital Signs - 24 hr 05/19/23 09:07 05/19/23 10:22 05/19/23 10:30 Temperature 97.4 F L Pulse Rate 75 74 Pulse Rate [Pulse Oximeter] 84 Respiratory Rate 24 20 24 Blood Pressure [Ri ght Upper Arm] 184/79 H Pulse Oximetry 94 93 93 Oxygen Delivery Me thod Room Air 05/19/23 10:45 05/19/23 11:00 05/19/23 11:15 Temperature Pulse Rate 76 73 74 Pulse Rate [Pulse Oximeter] Respiratory Rate Blood Pressure [Ri ght Upper Arm] Pulse Oximetry 93 91 90 Oxygen Delivery Me thod 05/19/23 11:30 05/19/23 11:45 05/19/23 12:00 Temperature Pulse Rate 78 91 76 Pulse Rate [Pulse Oximeter] Respiratory Rate Blood Pressure [Ri ght Upper Arm] Pulse Oximetry 92 93 93 Oxygen Delivery Me thod Course Vital Signs Vital signs: Initial Vital Signs Temperature 97.4 F L 05/19/23 09:07 Temperature Source Temporal Artery Scan 05/19/23 09:07 Pulse Rate 84 05/19/23 09:07 Pulse Rhythm Regular 05/19/23 09:07 Respiratory Rate 24 05/19/23 09:07 Blood Pressure 184/79 H 05/19/23 09:07 Blood Pressure Mean 114 H 05/19/23 09:07 Pulse Oximetry 94 05/19/23 09:07 Oxygen Delivery Method Room Air 05/19/23 09:07 Vital Signs Temperature 97.4 F L 05/19/23 09:07 Pulse Rate 84 05/19/23 09:07 Respiratory Rate 24 05/19/23 09:07 Blood Pressure 184/79 H 05/19/23 09:07 Pulse Oximetry 94 05/19/23 09:07 Oxygen Delivery Method Room Air 05/19/23 09:07 Temperature 97.4 F L 05/19/23 09:07 Pulse Rate 76 05/19/23 12:00 Respiratory Rate 24 05/19/23 10:30 Blood Pressure 184/79 H 05/19/23 09:07 Pulse Oximetry 93 05/19/23 12:00 Oxygen Delivery Method Room Air 05/19/23 09:07 Medications Administered Medications: Discontinued Medications Generic Name Dose Route Start Last Admin Trade Name Bryonq PRN Reason Stop Dose Admin Albuterol/Ipratropium 1 neb 05/19/23 09:49 05/19/23 10:15 Iprat-Albut 0.5-2.5 Mg/3 Ml Neb IH 05/19/23 09:50 1 neb ONCE ONE Administration Methylprednisolone Sodium Succinate 125 mg 05/19/23 09:49 05/19/23 10:15 Methylprednisolone Sod Succ 62.5 Mg/Ml (125) IVP 05/19/23 09:50 125 mg ONCE ONE Administration MDM - SOB/Dyspnea MDM Narrative Medical decision making narrative: Patient is a 62-year-old male history of COPD and current smoker presenting for shortness of breath. He has had this symptoms multiple times in the past and has always is COPD exacerbation he states. His feels exactly the same. We will do a lung and cardiac workup to make sure there was no further issues. COVID/flu/RSV ordered. Point of care troponin, CBC, BMP all ordered. Also ordered 8 EKG. DuoNebs given along with 125 Solu-Medrol. He has no clear signs of infection at this time so I am holding off antibiotics. Chest x-ray showed no acute abnormalities. No signs of pneumothorax or pneumonia. At this time it seems unlikely he is having a pulmonary embolism as the symptoms appear more consistent with COPD. EKG shows no concerning abnormalities. Patient's lab work is all within normal limits. After receiving medications he states he is feeling much better and feels comfortable going home. It is diffuse is a homeless COPD exacerbation and will discharge him home on steroids. He is agreeable to this plan. Lab Data Labs: Lab Results 05/19/23 05/19/23 05/19/23 Range/Units 09:49 09:59 10:05 WBC 9.15 (4.50-11.00) K/uL RBC 5.38 (4.30-5.90) m/uL Hgb 17.4 (13.5-17.5) gm/dL Hct 50.9 (37.0-53.0) % MCV 95 (80-100) fL MCH 32 (26-34) pg MCHC 34 (32-36) gm/dL RDW Coeff of Dee 12.1 (11.5-15.5) % Plt Count 299 (140-440) K/uL Neut % (Auto) 56.0 (42.0-72.0) % Lymph % (Auto) 24.6 (20-44) % [place] % (Auto) 6.9 (0.0-11.0) % Eos % (Auto) 11.0 H (0.0-7.0) % Baso % (Auto) 0.8 (0.0-3.0) % Neut # (Auto) 5.13 (1.7-7.0) K/uL Lymph # (Auto) 2.25 (0.90-2.90) K/uL [place] # (Auto) 0.60 (0.00-0.90) K/UL Eos # (Auto) 1.00 H (0.00-0.50) K/uL Baso # (Auto) 0.07 (0.00-0.30) K/uL Abs Immat Gran (auto) 0.06 (0.00-0.30) K/uL Imm/Tot Granulo (auto) 0.7 % Sodium 141 (135-149) mmol/L Potassium 3.9 (3.6-5.1) mmol/L Chloride 107 (96-114) mmol/L Carbon Dioxide 23 (20-32) mmol/L Anion Gap 11 (7-15) mEq/L BUN 11 (7-30) mg/dL Creatinine 0.7 (0.5-1.5) mg/dL Estimated Creat Clear 71.61 Estimated GFR 104 ml/min Glucose 129 H (60-115) mg/dL Calcium 9.4 (8.4-10.6) mg/dL Total Bilirubin 0.6 (0.1-1.5) mg/dL AST 22 (12-35) U/L ALT 25 (4-50) U/L Alkaline Phosphatase 64 (40-150) U/L Total Protein 7.6 (6.0-8.3) g/dL Albumin 4.5 (3.3-5.0) g/dL SARS-CoV-2 (PCR) Negative SARS-CoV-2 (Negative) Influenza Type A (PCR) Negative PCR FLU A (Negative) Influenza Type B (PCR) Negative PCR FLU B (Negative) RSV (PCR) Negative PCR RSV (Negative) POC Troponin I 0.00 L (0.01-0.04) ng/ml Imaging Data Chest x-ray: Radiologist's impression: 1. Mild pulmonary fibrosis. 2. No obvious acute infiltrate. Dictated by Eamon Frankel MD @ 05/19/2023 11:04:36 AM ECG Data ECG interpretation date: 05/19/23 Prior ECG tracings: available for review Interpretation: Normal sinus rhythm with a size 6 beats per minute, normal intervals, normal axis, no ST or T-wave abnormalities. Previous similar to previous EKGs on file Discharge Plan Discharge Clinical Impression: Acute exacerbation of chronic obstructive pulmonary disease Patient Disposition: Home, Self-Care Condition: Stable Instructions: COPD (Chronic Obstructive Pulmonary Disease) (DC) Additional Instructions: Continue to use home nebulizers. Use the steroids as directed. Follow up with the primary care provider. Return to the emergency department for new or worsening symptoms Prescriptions: New prednisone 20 mg tablet 40 mg PO DAILY Qty: 10 0RF No Action lisinopril 20 mg tablet 20 mg PO DAILY cyanocobalamin (vitamin B-12) 1,000 mcg tablet 1,000 mcg PO DAILY amlodipine 5 mg tablet 5 mg PO DAILY lansoprazole 15 mg capsule,delayed release(DR/EC) 15 mg PO DAILY folic acid 1 mg tablet 1 mg PO DAILY fluticasone propionate [Flovent HFA] 220 mcg/actuation HFA aerosol inhaler 1 puff INHALATION BID albuterol sulfate [Ventolin HFA] 90 mcg/actuation HFA aerosol inhaler 1 puff INHALATION QID PRN (Reason: dyspnea) Anoro Ellipta 62.5-25 mcg/actuation blister with device 1 inh INHALATION DAILY ipratropium-albuterol 20-100 mcg/actuation mist 1 puff inhalation Q6H Qty: 4 0RF prednisone 20 mg Tablet 40 mg PO DAILYWM Qty: 21 0RF Rx Instructions: 40mg (2 tabs) for 5 more days. Then 1 tab (20mg) for seven days, then 1/2 tab (10mg) for eight days, followed by a new bottle of 5mg for seven days. prednisone 5 mg tablet 5 mg PO DAILY Qty: 7 0RF Rx Instructions: start after you have finished the taper of the 20mg tablets. Follow Up/Referrals: Destiny Oropeza DO [Primary Care Provider] - Stand Alone [facility]
[2023-05-19 10:36] LABS: Albumin* 4.5 g/dL (3.3-5.0); Chloride* 107 mmol/L (96-114); Potassium* 3.9 mmol/L (3.6-5.1); Sodium* 141 mmol/L (135-149)
[2023-05-19 10:38] LABS: Bilirubin Total* 0.6 mg/dL (0.1-1.5); Creatinine* 0.7 mg/dL (0.5-1.5); Est. Creatinine Clearance* 71.61; Estimated Glomerular Filt Rate 104 ml/min
[2023-05-19 10:39] LABS: Alanine Aminotransferase* 25 U/L (4-50); Alkaline Phosphatase* 64 U/L (40-150); Anion Gap 11 mEq/L (7-15); Aspartate Amino Transferase* 22 U/L (12-35); Blood Urea Nitrogen* 11 mg/dL (7-30); Calcium* 9.4 mg/dL (8.4-10.6); Carbon Dioxide* 23 mmol/L (20-32); Glucose* 129 mg/dL (60-115); Total Protein* 7.6 g/dL (6.0-8.3)
[2023-05-19 11:13] LABS: PCR FLU A Negative PCR FLU A (Negative); PCR FLU B Negative PCR FLU B (Negative); PCR RSV Negative PCR RSV (Negative)
[2023-05-19 11:18] LABS: SARS PCR* Negative SARS-CoV-2 (Negative)
[2023-05-19 11:54] LABS: Basophils Absolute Auto 0.07 K/uL (0.00-0.30); Basophils Percent Auto 0.8 % (0.0-3.0); Hematocrit 50.9 % (37.0-53.0); Hemoglobin* 17.4 gm/dL (13.5-17.5); Immature Granulocytes Abs Auto 0.06 K/uL (0.00-0.30); Immature Granulocytes Pct Auto 0.7 %; Lymphocytes Absolute Auto 2.25 K/uL (0.90-2.90); Lymphocytes Percent Auto 24.6 % (20-44); Mean Corpuscular HGB Conc 34 gm/dL (32-36); Mean Corpuscular Hemoglobin 32 pg (26-34); Mean Corpuscular Volume 95 fL (80-100); Monocytes Percent Auto 6.9 % (0.0-11.0); Neutrophils Absolute Auto 5.13 K/uL (1.7-7.0); Platelet Count* 299 K/uL (140-440); RDW Coefficient of Variation % 12.1 % (11.5-15.5); Red Blood Count 5.38 m/uL (4.30-5.90); White Blood Count* 9.15 K/uL (4.50-11.00)
[2023-05-19 12:02] LABS: Slide Review Reflex No
== END 2023-05-19 12:17 | disposition home or self-care (01) ==
PROVIDERS: Emergency Provider Student in an Organized Health Care Education/Training Program; PCP Family Medicine
DX: J44.1 Chronic obstructive pulmonary disease with (acute) exacerbation (principal)
CPT/HCPCS: 36415; 71046; 80048; 80053; 84484; 85025; 87631; 93005; 94640; 96374; 99283; 99284; 99285; J2930

== ENCOUNTER 2023-11-22 18:11 | Emergency (ER) | payer MEDICAID, SELFPAY ==
[2023-11-22 18:18] VITALS: BP 192/112; PULSE 108; RESP 28; TEMP 37.2; O2SAT 89; BMI 32.9
--- NOTE | 2023-11-22 18:28 | CRLHL7_ITS ---
For Patients: As a result of the Century Cures Act, medical imaging exams and procedure reports are released immediately into your electronic medical record. You may view this report before your referring provider. If you have questions, please contact your health care provider. INDICATION: COPD. Shortness of breath. TECHNIQUE: AP portable chest x-ray. COMPARISON: None. FINDINGS: Clear lungs. Normal heart size and pulmonary vascularity. The included skeleton is unremarkable. IMPRESSION: Negative AP portable seated chest x-ray. Dictated by Bhargav Christianson MD @ 11/22/2023 6:56:37 PM (Electronically Signed)
--- NOTE | 2023-11-22 18:29 | ED.GENADULT ---
HPI - General Adult General Date Seen: 11/22/23 Chief complaint: Shortness of Breath/Dyspnea Stated complaint: COPD, shortness of breath Time Seen by Provider: 11/22/23 18:14 Source: patient, RN notes reviewed and old records reviewed Mode of arrival: ambulatory Limitations: no limitations History of Present Illness HPI narrative: Patient is a 63-year-old male with longstanding COPD/asthma, ongoing tobacco use. He says he thinks he overdid it yesterday out in the garden, he has been short of breath since then. He says he has been through this many times in the past, in terms of needing to come in for breathing treatments, steroids, sometimes admission. He has used his rescue inhaler multiple times today without much benefit. He denies any fevers, little bit of cough. He does not have chest pain. No unusual leg pain or swelling. No atypical features to this episode relative to what he has had in the past, aside from the fact that the last time it was associated with COVID which he does not feel E has now. He has a couple of drinks a day. Medications reviewed. Related Data Home Medications ?Medication ?Instructions ?Recorded ?Confirmed albuterol sulfate 90 mcg/actuation 1 puff inhalation QID PRN dyspnea 09/26/22 11/22/23 aerosol inhaler (Ventolin HFA) amlodipine 5 mg tablet 5 mg PO DAILY 09/26/22 11/22/23 cyanocobalamin (vitamin B-12) 1,000 mcg PO DAILY 09/26/22 11/22/23 1,000 mcg tablet fluticasone propionate 220 1 puff inhalation BID 09/26/22 11/22/23 mcg/actuation HFA aerosol inhaler (Flovent HFA) folic acid 1 mg tablet 1 mg PO DAILY 09/26/22 09/26/22 lansoprazole 15 mg capsule,delayed 15 mg PO DAILY 09/26/22 09/26/22 release lisinopril 20 mg tablet 20 mg PO DAILY 09/26/22 11/22/23 umeclidinium 62.5 mcg-vilanterol 1 inh inhalation DAILY 09/26/22 09/26/22 25 mcg/actuation powdr for inhalation (Anoro Ellipta) Previous Rx's ?Medication ?Instructions ?Recorded ipratropium 20 mcg-albuterol 100 1 puff inhalation Q6H #4 grams 09/27/22 mcg/actuation mist for inhalation prednisone 20 mg tablet 40 mg (2 x 20 mg) PO DAILYWM #21 09/28/22 tabs prednisone 5 mg tablet 5 mg PO DAILY #7 tabs 09/28/22 prednisone 20 mg tablet 40 mg (2 x 20 mg) PO DAILY #10 tabs 05/19/23 potassium chloride 20 mEq 20 meq PO BID #60 tabs 11/22/23 tablet,extended release Allergies Allergy/AdvReac Type Severity Reaction Status Date / Time No Known Drug Allergies Allergy Verified 11/22/23 18:18 Review of Systems Status of ROS: Reports: 10 or more systems reviewed and unremarkable except as noted in History and below [facility] Medical History Alcohol use ?Z78.9 - Other specified health status (ICD-10) Seasonal allergies ?J30.2 - Other seasonal allergic rhinitis (ICD-10) Gastroesophageal reflux disease ?K21.9 - Gastro-esophageal reflux disease without esophagitis (ICD-10) Dyslipidemia ?E78.5 - Hyperlipidemia, unspecified (ICD-10) Fatty liver disease, nonalcoholic ?K76.0 - Fatty (change of) liver, not elsewhere classified (ICD-10) Obesity (BMI 30.0-34.9) ?E66.9 - Obesity, unspecified (ICD-10) Essential hypertension ?I10 - Essential (primary) hypertension (ICD-10) Adjustment disorder with depressed mood ?F43.21 - Adjustment disorder with depressed mood (ICD-10) Tobacco use disorder ?F17.200 - Nicotine dependence, unspecified, uncomplicated (ICD-10) Stage 2 moderate COPD by GOLD classification ?J44.9 - Chronic obstructive pulmonary disease, unspecified (ICD-10) Surgical History Status post tonsillectomy and adenoidectomy ?Z90.89 - Acquired absence of other organs (ICD-10) Status post colonoscopy with polypectomy ?Z98.890 - Other specified postprocedural states (ICD-10) Family History Brother Diabetes Maternal Grandmother Diabetes Heart disease Social History Narrative: Lives with his brother. Has not worked many years due to his chronic obstructive pulmonary disease. Used to work as a cook. Smoking about 5 cigarettes per day. Tells me he drinks 2 beers per day, maybe 5 days week. Denies alcohol withdrawal symptoms. Denies use of any other street or recreational drugs, including marijuana. Designates his sister, Janine, as his power of trade mark attorney for health should that be required. Requests full resuscitation in the event of cardiopulmonary demise. Primary care physician is Dr. Oropeza, in [place], [place]. Highest level of school completed/degree received: 12th grade, no diploma Smoking Status: Never smoker Do you use any of these nicotine containing products: None Second hand tobacco smoke exposure: No How often do you have a drink containing alcohol: 2-3 times a week How many standard drinks containing alcohol do you have on a typical day: 3 or 4 AUDIT-C Alcohol total score: 4 Non-prescribed substance use: denies use Caffeine: Yes service: No Exam Narrative: Exam Narrative: Vital signs as noted above. In general, an alert, nontoxic male, looks somewhat short of breath, speaks in full sentences. Head: Normocephalic, atraumatic. Eyes: Pupils are equal reactive. Extraocular movements are full. Conjunctivae are normal. ENT: Mucous membranes are moist. Throat is normal. Neck: Supple without lymphadenopathy. Heart: Regular rate and rhythm. No murmur or rub. Lungs: Tachypneic, scattered wheezes. Abdomen: Soft and nontender. No organomegaly. Extremities: Well perfused. No edema. No calf tenderness. Pulses intact. Neurologic: Patient is alert and oriented to person and place. Speech is fluent. Face is symmetric. Moves all extremities equally. Affect: Normal. Skin: Warm and dry. Well perfused. Const: Vital Signs, click to edit/add: Vital Signs - 24 hr 11/22/23 18:18 11/22/23 19:14 Temperature 98.9 F Pulse Rate [Pulse Oximeter] 108 H 97 Respiratory Rate 28 H 22 Blood Pressure [Ri ght Upper Arm] 192/112 H Pulse Oximetry 89 92 Oxygen Delivery Me thod Room Air Room Air Documenting provider has reviewed patient's vital signs: yes Course Course ED Course: Reviewed prior records. Patient presents with what appears to be COPD exacerbation, other diagnostic considerations include pulmonary embolism, congestive heart failure, acute coronary syndrome, pneumonia, pneumothorax, pleural effusion, anemia, among others. Lab and x-ray pending, will try DuoNeb and Solu-Medrol. He is somewhat hypoxic here today, does not have a history of CO2 retention. Patient had a DuoNeb, Solu-Medrol, he feels significantly improved. He is breathing easily now, no longer tachypneic, lungs clear. O2 sats 92% on room air. Labs are notable primarily for a potassium of 2.6. He has a white count of 9.3, hemoglobin of 18.6. He has a mild eosinophilia with 0.57 eosinophils. Venous gas shows a pCO2 37, mild respiratory alkalosis with a pH of 7.45. PO2 is 64. Remainder of his metabolic panel was normal. He does not seem to have a history of significant hypokalemia previously. It is unclear where this is coming from, no obvious GI losses, no medications that would seem to be contributing. I gave him 40 mEq here, I am going to send him home on 40 mEq a day for the next few days and have asked him to talk this over with his primary doctor next week when he has an appointment already scheduled. This should be rechecked to determine if he needs further supplementation or evaluation. Magnesium was 1.7. Troponin was 0.01, CRP 0.8, LFTs normal. Chest x-ray was clear by my review, read as negative by Radiology. Given how well he looks at this time, I think it is reasonable to send him home with treatment for COPD exacerbation. He feels comfortable with that plan. I prescribed azithromycin, prednisone, potassium. Reviewed reasons to return such as worsening breathing difficulties, fevers, vomiting, weakness or muscle pain. Otherwise, follow up with primary care next week as previously planned. Vital Signs Vital signs: Initial Vital Signs Temperature 98.9 F 11/22/23 18:18 Temperature Source Temporal Artery Scan 11/22/23 18:18 Pulse Rate 108 H 11/22/23 18:18 Respiratory Rate 28 H 11/22/23 18:18 Blood Pressure 192/112 H 11/22/23 18:18 Blood Pressure Mean 138 H 11/22/23 18:18 Blood Pressure Position Sitting 11/22/23 18:18 Pulse Oximetry 89 11/22/23 18:18 Oxygen Delivery Method Room Air 11/22/23 18:18 Vital Signs Temperature 98.9 F 11/22/23 18:18 Pulse Rate 108 H 11/22/23 18:18 Respiratory Rate 28 H 11/22/23 18:18 Blood Pressure 192/112 H 11/22/23 18:18 Pulse Oximetry 89 11/22/23 18:18 Oxygen Delivery Method Room Air 11/22/23 18:18 Temperature 98.9 F 11/22/23 18:18 Pulse Rate 97 11/22/23 19:14 Respiratory Rate 22 11/22/23 19:14 Blood Pressure 192/112 H 11/22/23 18:18 Pulse Oximetry 92 11/22/23 19:14 Oxygen Delivery Method Room Air 11/22/23 19:14 Medications Administered Medications: Discontinued Medications Generic Name Dose Route Start Last Admin Trade Name Freq PRN Reason Stop Dose Admin Albuterol/Ipratropium 1 neb 11/22/23 18:27 11/22/23 18:46 Iprat-Albut 0.5-2.5 Mg/3 Ml Neb IH 11/22/23 18:28 1 neb ONCE ONE Administration Methylprednisolone Sodium Succinate 125 mg 11/22/23 18:27 11/22/23 18:47 Methylprednisolone Sod Succ 62.5 Mg/Ml (125) IVP 11/22/23 18:28 125 mg ONCE ONE Administration Potassium Chloride 40 meq 11/22/23 19:28 11/22/23 19:35 Potassium Chloride 10 Meq Capsule Er PO 11/22/23 19:29 40 meq ONCE ONE Administration Medical Decision Making Lab Data Labs: Lab Results 11/22/23 Range/Units 18:40 WBC 9.30 (4.50-11.00) K/uL RBC 5.56 (4.30-5.90) m/uL Hgb 18.6 H (13.5-17.5) gm/dL Hct 53.4 H (37.0-53.0) % MCV 96 (80-100) fL MCH 34 (26-34) pg MCHC 35 (32-36) gm/dL RDW Coeff of Dee 14.3 (11.5-15.5) % Plt Count 225 (140-440) K/uL Neut % (Auto) 61.8 (42.0-72.0) % Lymph % (Auto) 23.9 (20-44) % Bailey % (Auto) 7.3 (0.0-11.0) % Eos % (Auto) 6.1 (0.0-7.0) % Baso % (Auto) 0.6 (0.0-3.0) % Neut # (Auto) 5.74 (1.7-7.0) K/uL Lymph # (Auto) 2.22 (0.90-2.90) K/uL Bailey # (Auto) 0.70 (0.00-0.90) K/UL Eos # (Auto) 0.57 H (0.00-0.50) K/uL Baso # (Auto) 0.06 (0.00-0.30) K/uL Abs Immat Gran (auto) 0.03 (0.00-0.30) K/uL Imm/Tot Granulo (auto) 0.3 % D-Dimer Quant (PE/DVT) 0.21 (0.00-0.50) ug/ml VBG pH 7.456 H (7.32-7.43) VBG pCO2 37 L (40-50) mmHG VBG pO2 64.1 H (25-47) mmHG VBG HCO3 26 (21-28) mmol/L Sodium 139 (135-149) mmol/L Potassium 2.6 L* (3.6-5.1) mmol/L Chloride 105 (96-114) mmol/L Carbon Dioxide 24 (20-32) mmol/L Anion Gap 10 (7-15) mEq/L BUN 8 (7-30) mg/dL Creatinine 0.7 (0.5-1.5) mg/dL Estimated Creat Clear 70.69 Estimated GFR 104 ml/min Glucose 160 H (60-115) mg/dL Calcium 8.5 (8.4-10.6) mg/dL Magnesium 1.7 (1.5-2.6) mg/dL Total Bilirubin 1.3 (0.1-1.5) mg/dL Direct Bilirubin 0.5 (0.0-0.5) mg/dL AST 34 (12-35) U/L ALT 38 (4-50) U/L Alkaline Phosphatase 75 (40-150) U/L C-Reactive Protein 0.8 (0.5-1.0) mg/dL NT-Pro-B Natriuret Pep 257 pg/mL Total Protein 7.9 (6.0-8.3) g/dL Albumin 4.6 (3.3-5.0) g/dL POC Troponin I 0.01 (0.01-0.04) ng/ml Discharge Plan Discharge Clinical Impression: Acute infective exacerbation of chronic obstructive airway disease, Acute hypokalemia Patient Disposition: Home, Self-Care Condition: Improved Instructions: Hypokalemia (ED), COPD (Chronic Obstructive Pulmonary Disease) (DC) Additional Instructions: Medications as prescribed to include antibiotic, steroid, potassium. Follow-up next week as planned, you should have your potassium rechecked at that time. If at any time you have significant worsening shortness of breath, new symptoms such as fever vomiting, significant weakness, muscle pain etcetera, return to the emergency department. Prescriptions: New potassium chloride 20 mEq tablet extended release 20 meq PO BID Qty: 60 2RF No Action lisinopril 20 mg tablet 20 mg PO DAILY cyanocobalamin (vitamin B-12) 1,000 mcg tablet 1,000 mcg PO DAILY amlodipine 5 mg tablet 5 mg PO DAILY lansoprazole 15 mg capsule,delayed release(DR/EC) 15 mg PO DAILY folic acid 1 mg tablet 1 mg PO DAILY fluticasone propionate [Flovent HFA] 220 mcg/actuation HFA aerosol inhaler 1 puff INHALATION BID albuterol sulfate [Ventolin HFA] 90 mcg/actuation HFA aerosol inhaler 1 puff INHALATION QID PRN (Reason: dyspnea) Anoro Ellipta 62.5-25 mcg/actuation blister with device 1 inh INHALATION DAILY ipratropium-albuterol 20-100 mcg/actuation mist 1 puff inhalation Q6H Qty: 4 0RF prednisone 20 mg Tablet 40 mg PO DAILYWM Qty: 21 0RF Rx Instructions: 40mg (2 tabs) for 5 more days. Then 1 tab (20mg) for seven days, then 1/2 tab (10mg) for eight days, followed by a new bottle of 5mg for seven days. prednisone 5 mg tablet 5 mg PO DAILY Qty: 7 0RF Rx Instructions: start after you have finished the taper of the 20mg tablets. prednisone 20 mg tablet 40 mg PO DAILY Qty: 10 0RF Follow Up/Referrals: Destiny Oropeza DO [Primary Care Provider] - Stand Alone Forms: Advice [facility] Info Instructions
[2023-11-22] MEDS: IPRAT-ALBUT 0.5-2.5 MG/3 ML NEB 1 NEB IH (18:46)
[2023-11-22] MEDS: METHYLPREDNISOLONE SOD SUCC 62.5 MG/ML (125) 125 MG IVP (18:47)
[2023-11-22 18:54] LABS: HCO3 VBG 26 mmol/L (21-28); PCO2 VBG 37 mmHG (40-50); PO2 VBG 64.1 mmHG (25-47); pH VBG 7.456 (7.32-7.43)
[2023-11-22 18:57] LABS: Basophils Absolute Auto 0.06 K/uL (0.00-0.30); Basophils Percent Auto 0.6 % (0.0-3.0); Eosinophils Absolute Auto 0.57 K/uL (0.00-0.50); Eosinophils Percent Auto 6.1 % (0.0-7.0); Hematocrit 53.4 % (37.0-53.0); Hemoglobin* 18.6 gm/dL (13.5-17.5); Immature Granulocytes Abs Auto 0.03 K/uL (0.00-0.30); Immature Granulocytes Pct Auto 0.3 %; Lymphocytes Absolute Auto 2.22 K/uL (0.90-2.90); Lymphocytes Percent Auto 23.9 % (20-44); Mean Corpuscular HGB Conc 35 gm/dL (32-36); Mean Corpuscular Hemoglobin 34 pg (26-34); Mean Corpuscular Volume 96 fL (80-100); Monocytes Percent Auto 7.3 % (0.0-11.0); Neutrophils Absolute Auto 5.74 K/uL (1.7-7.0); Neutrophils Percent Auto 61.8 % (42.0-72.0); Platelet Count* 225 K/uL (140-440); RDW Coefficient of Variation % 14.3 % (11.5-15.5); Red Blood Count 5.56 m/uL (4.30-5.90); Slide Review Reflex No
[2023-11-22 19:07] LABS: Troponin, Point-of-Care* 0.01 ng/ml (0.01-0.04)
[2023-11-22 19:14] VITALS: PULSE 97; RESP 22; O2SAT 92
[2023-11-22 19:18] LABS: Albumin* 4.6 g/dL (3.3-5.0); Chloride* 105 mmol/L (96-114); Sodium* 139 mmol/L (135-149)
[2023-11-22 19:20] LABS: Creatinine* 0.7 mg/dL (0.5-1.5); Est. Creatinine Clearance* 70.69; Estimated Glomerular Filt Rate 104 ml/min
[2023-11-22 19:21] LABS: Alanine Aminotransferase* 38 U/L (4-50); Alkaline Phosphatase* 75 U/L (40-150); Anion Gap 10 mEq/L (7-15); Aspartate Amino Transferase* 34 U/L (12-35); Bilirubin Direct* 0.5 mg/dL (0.0-0.5); Bilirubin Total* 1.3 mg/dL (0.1-1.5); Blood Urea Nitrogen* 8 mg/dL (7-30); Carbon Dioxide* 24 mmol/L (20-32); Glucose* 160 mg/dL (60-115); Total Protein* 7.9 g/dL (6.0-8.3)
[2023-11-22 19:22] LABS: Calcium* 8.5 mg/dL (8.4-10.6)
[2023-11-22 19:24] LABS: C Reactive Protein* 0.8 mg/dL (0.5-1.0)
[2023-11-22 19:25] LABS: Potassium* 2.6 mmol/L (3.6-5.1)
[2023-11-22 19:33] LABS: NT Pro B Type NatriureticPept* 257 pg/mL
[2023-11-22] MEDS: POTASSIUM CHLORIDE 10 MEQ CAPSULE ER 40 MEQ PO (19:35)
[2023-11-22 19:41] LABS: Magnesium* 1.7 mg/dL (1.5-2.6)
[2023-11-22 20:29] LABS: D Dimer Quantitative* 0.21 ug/ml (0.00-0.50)
== END 2023-11-22 20:24 | disposition home or self-care (01) ==
PROVIDERS: Emergency Provider Emergency Medicine; PCP Family Medicine
DX: J44.1 Chronic obstructive pulmonary disease with (acute) exacerbation (principal); R09.02 Hypoxemia
CPT/HCPCS: 36415; 71045; 80048; 80076; 82803; 83735; 83880; 84484; 85025; 85379; 86140; 94640; 96374; 99284; A9270; J2919

== ENCOUNTER 2024-10-16 06:49 | Emergency (ER) | payer MEDICAID, SELFPAY ==
--- OUTSIDE RECORDS SUMMARY | 2024-10-16 06:51 | XMS_ITS | Clinical Summary ---
Author Organization [facility] Address [address] [place] [address] Care Team Providers Care Print Graphic Designer Name Role Phone Destiny Oropeza Primary Care Provider [phone] Allergies No known active allergies Medications NebulizerIndicatio ns:Stage 2 moderate COPD by GOLD classification () Nebulizer, disposable neb kit x 4, reuseable neb kit x 1, mask x 1, filters x 1. Frequency of use: daily; Medication: albuterol Length of need: 99 months 1 Each 10/27/19 23 Active ezetimibe (ZETIA) 10 mg tabletIndications: Dyslipidemia Take 1 Tablet (10 mg) by mouth once daily. 90 Tablet 3 12/03/19 24 Active umeclidinium-vilan teroL (Anoro Ellipta) 62.5-25 mcg/actuation inhalerIndications :Stage 2 moderate COPD by GOLD classification () Inhale 1 Puff by mouth once daily. 60 Each 12/03/19 24 Active amLODIPine (NORVASC) 10 mg tabletIndications: Essential hypertension Take 1 Tablet (10 mg) by mouth once daily. 90 Tablet 3 12/03/19 24 Active triamcinolone, 55 mcg each actuation, nasal (Nasacort) 55 mcg nasal sprayIndications:C hronic seasonal allergic rhinitis due to pollen Inhale 2 Sprays to both nostrils once daily. 16.9 mL 6 12/14/19 24 Active lansoprazole (PREVACID) 15 mg capsuleIndications :Gastroesophageal reflux disease without esophagitis Take 1 Capsule (15 mg) by mouth once daily before a meal. 90 Capsule 3 12/14/19 24 Active lisinopriL (PRINIVIL; ZESTRIL) 20 mg tabletIndications: Essential hypertension Take 1 Tablet (20 mg) by mouth once daily. 90 Tablet 3 12/14/19 24 Active montelukast (SINGULAIR) 10 mg tabletIndications: Chronic seasonal allergic rhinitis due to pollen TAKE 1 TABLET BY MOUTH EVERYDAY AT BEDTIME 90 Tablet 3 12/14/19 24 Active nicotine (NICORETTE) 2 mg gumIndications:Tob acco abuse Chew 1 gum (2 mg) every hour while awake as needed for Nicotine Craving. 100 Each 12/14/19 24 Active Ventolin HFA 90 mcg/actuation inhalerIndications :Stage 2 moderate COPD by GOLD classification (HC) INHALE 1 PUFF BY MOUTH 4 TIMES DAILY IF NEEDED FOR SHORTNESS OF BREATH 1ST CHOICE. 18 Each 6 01/22/20 24 Active albuterol-ipratrop ium (DUONEB) (2.5-0.5 mg) in 3 mL NEBULIZATION solutionIndication s:COPD exacerbation (HC) INHALE 3 ML VIA A NEBULIZER EVERY 6 HOURS IF NEEDED FOR SHORTNESS OF BREATH OR WHEEZING. 180 mL 02/12/20 24 Active atorvastatin (Lipitor) 80 mg tabletIndications: Dyslipidemia Take 1 Tablet (80 mg) by mouth at bedtime. 100 Tablet 07/04/19 25 Active cyanocobalamin (VITAMIN B12) 1,000 mcg tabletIndications: Vitamin B12 deficiency Take 1 Tablet (1,000 mcg) by mouth once daily. 90 Tablet 07/04/19 25 Active fluticasone propionate (Flovent HFA) 220 mcg/Actuation inhalerIndications :Stage 2 moderate COPD by GOLD classification (HC) INHALE 1 PUFF BY MOUTH TWICE A DAY, rinse after use 12 g 11 07/04/19 25 Active cetirizine (ZYRTEC) 10 mg tabletIndications: Other seasonal allergic rhinitis Take 1 Tablet (10 mg) by mouth once daily. 90 Tablet 3 07/04/19 25 Active predniSONE (DELTASONE) 10 mg tabletIndications: Stage 2 moderate COPD by GOLD classification (HC) Take 4 Tablets (40 mg) by mouth once daily with a meal for 3 days, THEN 3 Tablets (30 mg) once daily with a meal for 3 days, THEN 2 Tablets (20 mg) once daily with a meal for 3 days, THEN 1 Tablet (10 mg) once daily with a meal for 3 days. 30 Tablet 09/09/19 25 025 Active Problems Problem Noted Date Diagnosed Date Essential hypertension 12/14/2023 Vitamin B12 deficiency 12/14/2023 Folic acid deficiency 12/14/2023 Alcohol use 12/14/2023 Pulmonary HTN 12/02/2023 Pulmonary nodule 01/17/2023 Overview (01/17/2023): Needs repeat CT 12/2023. 5mm right sided pulmonary nodule. Type 2 diabetes mellitus wit h diabetic microalbuminuria, without long-term current use of insulin 12/17/2022 Adjustment disorder with depressed mood 04/14/20 Hyperopia of both eyes with astigmatism and pres byopia 08/13/2017 Stage 2 moderate COPD by GOLD classification 05/2017 HTN (hypertension) 01/17/2016 Obesity 12/15/2013 Fatty liver disease, nonalcoholic 03/12/2013 Adenomatous colon polyp 01/21/2013 Overview (02/11/2016): Colonoscopy 12/2012 polyps repeat in 3 years Colonoscopy 01/2016 polyps repeat in 5 years Dyslipidemia 11/17/2012 Elevated liver function tests 11/17/2012 Tobacco use disorder 05/22/2011 GERD (gastroesophageal reflux disease) 0 Chorioretinal scar, unspecified 03/22/2006 Overview (03/22/2006): R Resolved Problems Problem Noted Date Diagnosed Date Resolved Date Acute respiratory failure with hypoxia 12/02/2023 06/16/2024 Chalazion of right upper eyelid 11/28/2016 02/23/2017 Prediabetes 03/31/2014 12/14/2023 RHINITIS - ALLERGIC 04/19/2005 05/22/20 11 Candidiasis of mouth 04/19/2005 011 Carpal tunnel syndrome 04/19/200511/24 ASTHMA WITH ACUTE EXACERBATION 07/04/2004 11/24/2009 BRONCHITIS NOS 07/04/2004 SINUSITIS, ACUTE NEC 005 Encounters Date Type Department Care Team Description 09/08/2024 1:45 PM CDT Office Visit [facility] [address] [place] [address] Odilno Doe MD Breathing Problem (Started Sunday) 09/08/2024 Travel 09/08/2024 Nurse Triage [facility] [address] [place] [address] Destiny Oropeza, Difficulty Breathing from Last 3 Months Immunizations Immunization Administration Dates Next Due AMB Influenza, IIV3 (Age >=3 years)(Flu Clinic Only) 04/29/2011,04/30/2010,04/23/2008 COVID-19 VACCINE SPIKEVAX (M ODERNA 50MCG/0.5ML) 12YO+ PFS 07/04/2024,06/14/2023 COVID-19 vaccine (Moderna Holden mo 50mcg/0.25mL) PF, MDV 08/29/2021 HepA-HepB (Twinrix) 06/16/2013 INFLUENZA, IIV3 PF (AGE >= 6 MO) 07/04/2024 Influenza, IIV3 (Age >=3 years) 04/07/20 13,03/14/2012,05/10/2009,2006,04/19/2005,04/07/2004 Influenza, IIV4 06/14/2023,,04/01/2021,2019,03/12/2017,07/31/2016,03/30/2014 Pneumococcal Conj 20-valent (Prevnar 20) 12/14/2022 Pneumococcal Poly,23-Valent (Pneumovax) 06/16/2013 Td (Age >=7 Years) 03/05/2020 Tdap 11/24/2009 Family History Medical History Relation Name Comments Diabetes Brother type 2 Other Father WANDA Diabetes Maternal Grandmother Heart Disease Maternal Grandmother Relation Name Status Comments Brother Father Maternal Grandmother Social History Tobacco Use Types Packs/Day Years Used Date Smoking Tobacco: Some Days Cigarettes 0.3 2 Started: 09/13/2017; Last attempted to quit: 09/14/2019 Passive Smoke Exposure: Never Smokeless Tobacco: Never Tobacco Cessation:Ready to Q uit: Not Asked; Counseling Given: Not Answered Comments:1cig/4-7days Alcohol Use Standard Drinks/Week Comments Yes 10 (1 standard drink = 0.6 oz pu re alcohol) PHQ-2 Answer Date Recorded PHQ-2 TOTAL SCORE 1 07/04/2024 Social Connections Answer Date Recorded Do you often feel lonely or isolated from those around you? 0 07/04/2024 Financial Resource Strain Answer Date R ecorded Difficulty of Paying Living Expenses 3 07/04/2024 Difficulty of Paying Living Expenses Not on file 07/04/2024 Food Insecurity Answer Date Recorded Do you worry your food will run out before you are able to buy more? 1 07/04/2024 Transportation Needs Answer Date Record ed Does lack of transportation keep you from medica l appointments? 1 07/04/2024 Does lack of transportation keep you from work, meetings or getting things that you need? 1 07/04/2024 Housing Stability Answer Date Recorded What is your housing situation today? 1 07/04/2024 Utilities Answer Date Recorded Do you have trouble paying f or utilities (for example, heat, electricity, water, phone)? 1 07/04/2024 Sex and Gender Information Value Date Recorded Sex Assigned at Not on file Legal Sex Male 5:48 AM UNIT MANAGER CON[employer]IENCE [employer]ORES Gender Identity Not on file Sexual Orientation Not on file Obstetrics History Last Filed Vital Signs Vital Sign Reading Time Taken Comments Blood Pressure 146/88 09/08/2024 1:49 PM CDT Pulse 103 09/08/2024 1:49 PM CDT Temperature 36.7 C (98.1 F) 06/14/2023 10:37 AM UNIT MANAGER CON[employer]IENCE STORES Respiratory Rate 20 05/06/2020 10:33 AM UNIT MANAGER CONVENIENCE STORES Oxygen Saturation 92% 09/08/2024 1:49 PM CDT Inhaled Oxygen Concentration - - Weight 98.9 kg (218 lb) 09/08/2024 1:49 PM CDT Height 168.3 cm (5' 6.25) 07/04/2024 8:05 AM CS T Body Mass Index 34.92 07/04/2024 8:05 AM UNIT MANAGER CON[employer]IENCE STORES Plan of Treatment Upcoming Encounters Date Type Department Care Team (Late st Contact Info) Description 11/28/2024 10:20 AM CDT Office Visit [facility] [address] [place] [address] Destiny O[place] [address] Health Maintenance Due Date Last Done Comments HIV for age 15-65 1975 Zoster (shingles) series for age 50+ (1 of 2) 2010 RSV vaccine for adults or (1 - Risk 60-74 years 1-dose series) 2020 Colonoscopy through age 75 02/08/202102/08, 02/09/2016, 01/17/2013, Additional history exists BMI (ht and wt on same day) for age 18+ 07/04/2025 07/04/2024, 06/14/2023, 01/05/2023, Additional history exists Depression screening for age 12+ 07/04/2025 07/04/2024, 12/17/2023, 12/14/2023, Additional history exists Lipids for age 45-75 12/13/2028 12/14/2023, 06/14/2023, 12/14/2022, Additional history exists Tetanus booster 03/05/2030 03/05/2020, 11/24/2009 Tdap Completed 11/24/2009 Hepatitis C screening for ag e 18-79 Completed 02/17/2013 Pneumococcal series for age 50+ Completed , 06/16/2013 COVID-19 vaccine series Completed 07/04/19, 06/14/2023, 08/29/2021, Additional history exists Influenza Vaccine Completed 07/04/2024, , 04/18/2022, Additional history exists Procedures Procedure Name Priority Date/Time Associated Diagnosis Comments LIPID PANEL W REFLEX MEASURED LDL Routine 12/14/2023 10:27 AM CDT Dyslipidemia COLONOSCOPY 02/09/2016 8:08 AM CDT ANTI HCV Routine 02/17/2013 10:22 AM CDT Elevated liver function tests from Last 3 Months or Most Recently Relevant to Health Maintenance Results * LIPID PANEL W REFLEX MEASURED LDL (12/14/2023 10:27 AM CDT) CHOLESTEROL,TOTAL 143 100 - 199 mg/dL 12/14/2023 8:05 PM CDT [facility] Comment: Cholesterol, Total Reference Ranges Desirable <200 mg/dL Borderline 200-239 mg/dL High >=240 mg/dL TRIGLYCERIDES 111 <150 mg/dL 12/14/2023 8:05 PM CDT [facility] HDL CHOLESTEROL 57 >40 mg/dL 8:05 PM CDT [facility] NON-HDL CHOLESTEROL 86 <145 mg/dl 12/14/2023 8:05 PM CDT [facility] CHOL/HDL RATIO 2.51 <4.50 12/14/2023 8:05 PM CDT [facility] LDL CHOLESTEROL 64 <=130 mg/dL 12/14/2023 8:05 PM CDT [facility] VLDL CHOLESTEROL 22 <=30 mg/dL 12/14/2023 8:05 PM T [facility] PROVIDER ORDERED STATUS RANDOM 12/14/2023 8:05 PM CDT [facility] Blood BLOOD SPECIMEN / Unknown Venipuncture / Unknown 12/14/2023 10:27 AM CDT 12/14/2023 10:27 AM CDT us Destiny Oropeza DO CHEMISTRY Final Resul t [facility] [address] [place] [address], [place] * COLONOSCOPY (02/09/2016 8:08 AM CDT) 02/09/2016 8:08 AM CDT Narrative 02/09/2016 8:08 AM CDT Patient Name: Vineet Messina Procedure Date: 02/09/2016 Gender: Male Date of : 1960 Admit Type: Outpatient Procedure: Colonoscopy Proceduralist: Reginald Gomez MD Referring MD: Destiny Oropeza Indications/Pre-Op Diagnosis: Surveillance: Personal history of adenomatous polyps on last colonoscopy 3 years ago Medications: Fentanyl 100 micrograms IV, Midazolam 4 mg IV, The level of sedation administered was moderate Procedure Description: The patient had risks, benefits and alternatives explained to and gave informed consent. The patient had a stable cardiopulmonary status and judged an adequate candidate for conscious sedation. The PCF-Q290AL [id number] was passed through the anus and advanced to the cecum, identified by appendiceal orifice and ileocecal valve. The colonoscopy was performed without difficulty. The patient tolerated the procedure well. The quality of the bowel preparation was excellent. The ileocecal valve, appendiceal orifice, and rectum were photographed. Complications: No immediate complications. Estimated Blood Loss & Specimen: Estimated blood loss: none. Specimen collected - Yes and sent to Laboratory Findings: The perianal and digital rectal examinations were normal. Two sessile polyps were found in the descending colon. The polyps were 2 to 3 mm in size. These polyps were removed with a cold snare. Resection and retrieval were complete. A few small-mouthed diverticula were found in the sigmoid colon. The exam was otherwise without abnormality on direct and retroflexion views. Impressions/Post-Op Diagnosis: - Two 2 to 3 mm polyps in the descending colon. Resected and retrieved. - Diverticulosis in the sigmoid colon. - The examination was otherwise normal on direct and retroflexion views. Recommendation: - Patient has a contact number available for emergencies. The signs and symptoms of potential delayed complications were discussed with the patient. Return to normal activities tomorrow. Written discharge instructions were provided to the patient. - Resume previous diet. - Continue present medications. - Await pathology results. - Repeat colonoscopy in 5 years for surveillance. Reginald Gomez MD 02/09/2016 8:50:09 AM This report has been signed electronically. Note Initiated On: 02/09/2016 8:08 AM Procedure Code(s): --- Professional --- 17172, Colonoscopy, flexible; with removal of tumor(s), polyp(s), or other lesion(s) by snare technique Diagnosis Code(s): --- Professional --- Z86.010, Personal history of colonic polyps D12.4, Benign neoplasm of descending colon K57.30, Diverticulosis of large intestine without perforation or abscess without bleeding CPT copyright 2015 [employer]. All rights reserved. The codes documented in this report are preliminary and upon hog room supervisor review may be revised to meet current compliance requirements. Scope In: 8:21:00 AM Scope Withdrawal Time 0 hours 14 minutes 28 seconds Scope Out: 8:39:58 AM Procedure Note Reginald Gomez MD - 02/09/2016 8:50 AM CDT Patient Name: Vineet Messina Procedure Date: 02/09/2016 Gender: Male Date of : 1960 Admit Type: Outpatient Procedure: Colonoscopy Proceduralist: Reginald Gomez MD Referring MD: Destiny Oropeza Indications/Pre-Op Diagnosis: Surveillance: Personal history ofadenomatous polyps on last colonoscopy 3 years ago Medications: Fentanyl 100 micrograms IV, Midazolam 4 mgIV, The level of sedation administered wasmoderate Procedure Description: The patient had risks, benefits and alternatives explained to andgave informed consent. The patient had a stable cardiopulmonary status and judged an adequate candidate for conscious sedation. The PCF-Q290AL [id number] was passed through the anus and advanced tothe cecum, identified by appendiceal orifice and ileocecal valve. The colonoscopy was performed without difficulty. The patient toleratedthe procedure well. The quality of the bowel preparation was excellent.The ileocecal valve, appendiceal orifice, and rectum were photographed. Complications: No immediate complications. Estimated Blood Loss & Specimen: Estimated blood loss: none. Specimen collected - Yes and sent to Laboratory Findings: The perianal and digital rectal examinations were normal. Two sessile polyps were found in the descending colon. The polypswere 2 to 3 mm in size. These polyps were removed with a cold snare.Resection and retrieval were complete. A few small-mouthed diverticula were found in the sigmoid colon. The exam was otherwise without abnormality on direct and retroflexion views. Impressions/Post-Op Diagnosis: - Two 2 to 3 mm polyps in the descending colon. Resected andretrieved. - Diverticulosis in the sigmoid colon. - The examination was otherwise normal on direct and retroflexionviews. Recommendation: - Patient has a contact number available for emergencies. The signsand symptoms of potential delayed complications were discussed with the patient. Return to normal activities tomorrow. Written discharge instructions were provided to the patient. - Resume previous diet. - Continue present medications. - Await pathology results. - Repeat colonoscopy in 5 years for surveillance. Reginald Gomez MD 02/09/2016 8:50:09 AM This report has been signed electronically. Note Initiated On: 02/09/2016 8:08 AM Procedure Code(s): --- Professional --- 62250, Colonoscopy, flexible; with removalof tumor(s), polyp(s), or other lesion(s) bysnare technique Diagnosis Code(s): --- Professional --- Z86.010, Personal history of colonicpolyps D12.4, Benign neoplasm of descending colon K57.30, Diverticulosis of large intestine without perforation or abscess withoutbleeding CPT copyright 2015 [employer]. All rights reserved. The codes documented in this report are preliminary and upon hog room supervisor reviewmay be revised to meet current compliance requirements. Scope In: 8:21:00 AM Scope Withdrawal Time 0 hours 14 minutes 28 seconds Scope Out: 8:39:58 AM us Reginald Gomez MD PROCEDURE ORD Final Res ult * ANTI HCV (02/17/2013 10:22 AM CDT) ANTI HCV Non-reacti ve [facility] Blood specimen (specimen) BLOOD SPECIMEN / Unknown 02/17/2013 10:22 AM CDT 02/17/2013 10:10 AM CDT us Destiny Oropeza DO SEND OUTS Final Resul t [facility] [place]NAL ZIP [address] [place] [id number] from Last 3 Months or Most Recently Relevant to Health Maintenance Insurance [facility] Care Teams Print Graphic Designer Relationship Specialty [place] [address] [facility], [place] [id number] PCP - General Family Practice 11/13/12
[2024-10-16 06:53] VITALS: BP 192/101; PULSE 106; RESP 26; TEMP 36.4; O2SAT 88; BMI 32.1
--- NOTE | 2024-10-16 07:10 | CRLHL7_ITS ---
For Patients: As a result of the Century Cures Act, medical imaging exams and procedure reports are released immediately into your electronic medical record. You may view this report before your referring provider. If you have questions, please contact your health care provider. INDICATION: COPD, hypoxia COMPARISON: 05/19/2023 TECHNIQUE: PA and lateral 2 view chest. FINDINGS: Lung volumes are mildly hyperinflated with diaphragmatic flattening.. Fine diffuse interstitial opacities and central peribronchial cuffing. No focal consolidation. No pulmonary edema. No pleural effusion. No pneumothorax. No pneumomediastinum. Normal cardiomediastinal silhouette. Bones: Normal for age. IMPRESSION: Mild central peribronchial thickening and interstitial opacities are usually seen with viral or atypical infectious airways. Dictated by Maribel Gautam MD @ 10/16/2024 7:48:55 AM (Electronically Signed)
[2024-10-16] MEDS: AZITHROMYCIN 250 MG TABLET 500 MG PO (07:17)
[2024-10-16] MEDS: predniSONE 20 MG TABLET 40 MG PO (07:18)
[2024-10-16] MEDS: IPRAT-ALBUT 0.5-2.5 MG/3 ML NEB 1 NEB IH (07:18)
--- OUTSIDE RECORDS SUMMARY | 2024-10-16 07:23 | XMS_ITS | Clinical Summary ---
Author Organization [facility] Address [address] [place] [address] Care Team Providers Care Manager R D Name Role Phone Destiny Oropeza Primary Care Provider [phone] Allergies No known active allergies Medications NebulizerIndicatio [...] Description 09/08/2024 1:45 PM CDT Office Visit [facility] [place] [facility] [address] [place] [address] Odilon Doe MD Breathing Problem (Started Sunday) 09/08/2024 Travel 09/08/2024 Nurse Triage [facility] [place] [facility] [address] [place] [address] Destiny Oropeza, Difficulty Breathing from Last 3 [...] on file Legal Sex Male 5:48 AM TOUR COUNSELOR Gender Identity Not on file Sexual Orientation Not on file Obstetrics History Last Filed Vital Signs Vital Sign Reading Time Taken Comments Blood Pressure 146/88 09/08/2024 1:49 PM CDT Pulse 103 09/08/2024 1:49 PM CDT Temperature 36.7 C (98.1 F) 06/14/2023 10:37 AM TOUR COUNSELOR Respiratory Rate 20 05/06/2020 10:33 AM TOUR COUNSELOR Oxygen Saturation 92% 09/08/2024 1:49 PM CDT Inhaled Oxygen Concentration - - Weight 98.9 kg (218 lb) 09/08/2024 1:49 PM CDT Height 168.3 cm (5' 6.25) 07/04/2024 8:05 AM CS T Body Mass Index 34.92 07/04/2024 8:05 AM TOUR COUNSELOR Plan of Treatment Upcoming Encounters Date Type Department Care Team (Late st Contact Info) Description 11/28/2024 10:20 AM CDT Office Visit [facility] [place] [facility] [address] [place] [address] [place] [address] Health Maintenance Due Date Last Done Comments [...] - 199 mg/dL 12/14/2023 8:05 PM CDT [facility] Comment: Cholesterol, Total Reference Ranges Desirable <200 mg/dL Borderline 200-239 mg/dL High >=240 mg/dL TRIGLYCERIDES 111 <150 mg/dL 12/14/2023 8:05 PM CDT [facility] HDL CHOLESTEROL 57 >40 mg/dL 8:05 PM CDT [facility] NON-HDL CHOLESTEROL 86 <145 mg/dl 12/14/2023 8:05 PM CDT [facility] CHOL/HDL RATIO 2.51 <4.50 12/14/2023 8:05 PM CDT [facility] LDL CHOLESTEROL 64 <=130 mg/dL 12/14/2023 8:05 PM CDT [facility] VLDL CHOLESTEROL 22 <=30 mg/dL 12/14/2023 8:05 PM T [facility] PROVIDER ORDERED STATUS RANDOM 12/14/2023 8:05 PM CDT [facility] Blood BLOOD SPECIMEN / Unknown Venipuncture / Unknown 12/14/2023 10:27 AM CDT 12/14/2023 10:27 AM CDT us Destiny Oropeza DO CHEMISTRY Final Resul t [facility] [address] [place] [address], [place] * COLONOSCOPY (02/09/2016 8:08 AM CDT) [...] adequate candidate for conscious sedation. The PCF-Q290AL [id number] was passed through the anus and advanced [...] 8:08 AM Procedure Code(s): --- Professional --- 30569, Colonoscopy, flexible; with removal of tumor(s), polyp(s), or other lesion(s) by snare technique Diagnosis Code(s): --- Professional --- Z86.010, Personal history of colonic polyps D12.4, Benign neoplasm of descending colon K57.30, Diverticulosis of large intestine without perforation or abscess without bleeding CPT copyright 2015 [employer]. All rights reserved. The codes documented in this report are preliminary and upon detailer pharmaceuticals review may be revised to meet current [...] adequate candidate for conscious sedation. The PCF-Q290AL [id number] was passed through the anus and advanced [...] 8:08 AM Procedure Code(s): --- Professional --- 58481, Colonoscopy, flexible; with removalof tumor(s), polyp(s), or other lesion(s) bysnare technique Diagnosis Code(s): --- Professional --- Z86.010, Personal history of colonicpolyps D12.4, Benign neoplasm of descending colon K57.30, Diverticulosis of large intestine without perforation or abscess withoutbleeding CPT copyright 2015 [employer]. All rights reserved. The codes documented in this report are preliminary and upon detailer pharmaceuticals reviewmay be revised to meet current compliance requirements. Scope In: 8:21:00 AM Scope Withdrawal Time 0 hours 14 minutes 28 seconds Scope Out: 8:39:58 AM us Reginald Gomez MD PROCEDURE ORD Final Res ult * ANTI HCV (02/17/2013 10:22 AM CDT) ANTI HCV Non-reacti ve [facility] Blood specimen (specimen) BLOOD SPECIMEN / Unknown 02/17/2013 10:22 AM CDT 02/17/2013 10:10 AM CDT us Destiny Oropeza DO SEND OUTS Final Resul t [facility] INTERNAL ZIP [address] [place] [phone] from Last 3 Months or Most Recently Relevant to Health Maintenance Insurance [facility] Care Teams Manager R D Relationship Specialty [place] [address] [facility], [place] [phone] PCP - General Family Practice 11/13/12
[2024-10-16 07:29] VITALS: PULSE 105; O2SAT 92
[2024-10-16 07:30] VITALS: PULSE 104; O2SAT 91
--- NOTE | 2024-10-16 07:37 | ED_ITS ---
HPI - General Adult General Chief complaint: Shortness of Breath/Dyspnea Stated complaint: Asthma/Copd exacerbation Time Seen by Provider: 10/16/24 07:04 Source: patient Mode of arrival: ambulatory Limitations: no limitations History of Present Illness HPI narrative: 64-year-old male presents the emergency department with worsening shortness of breath over the last couple days. Nasal congestion and cough. Reports that he ?gets this every year?. He does endorse a history of COPD and is on maintenance inhalers. He does continue to smoke. No fever. Reports that he did not yet take his antihypertensives this morning. Denies a history of DVT or PE. States that he tried using his albuterol with no significant improvement in symptoms. Does not have a nebulizer. On specific questioning, reports that he does tend to respond to the typical azithromycin, prednisone cocktail. Denies intubation or hospitalization for COPD in the past. Is not on home oxygen. Did not try any other interventions besides the albuterol and some [id number] cough syrups. Has not been evaluated in urgent care clinic for this illness recently. Past medical history notable for GERD hypertension tobacco use, COPD. M edications reviewed, the list does match what he reports. ROS is notable for mild nasal congestion and the shortness of breath as stated. Denies chest pain, cardiac symptoms or other complaints times 12 systems. Related Data Home Medications ?Medication ?Instructions ?Recorded ?Confirmed albuterol sulfate 90 mcg/actuation 1 puff inhalation QID PRN dyspnea 09/26/22 11/22/23 aerosol inhaler (Ventolin HFA) amlodipine 5 mg tablet 5 mg PO DAILY 09/26/22 11/22/23 cyanocobalamin (vitamin B-12) 1,000 mcg PO DAILY 09/26/22 11/22/23 1,000 mcg tablet fluticasone propionate 220 1 puff inhalation BID 09/26/22 11/22/23 mcg/actuation HFA aerosol inhaler (Flovent HFA) folic acid 1 mg tablet 1 mg PO DAILY 09/26/22 09/26/22 lansoprazole 15 mg capsule,delayed 15 mg PO DAILY 09/26/22 09/26/22 release lisinopril 20 mg tablet 20 mg PO DAILY 09/26/22 11/22/23 umeclidinium 62.5 mcg-vilanterol 1 inh inhalation DAILY 09/26/22 09/26/22 25 mcg/actuation powdr for inhalation (Anoro Ellipta) Previous Rx's ?Medication ?Instructions ?Recorded ipratropium 20 mcg-albuterol 100 1 puff inhalation Q6H #4 grams 09/27/22 mcg/actuation mist for inhalation prednisone 20 mg tablet 40 mg (2 x 20 mg) PO DAILYWM #21 09/28/22 tabs prednisone 5 mg tablet 5 mg PO DAILY #7 tabs 09/28/22 prednisone 20 mg tablet 40 mg (2 x 20 mg) PO DAILY #10 tabs 05/19/23 potassium chloride 20 mEq 20 meq PO BID #60 tabs 11/22/23 tablet,extended release azithromycin 250 mg tablet See Rx Instructions PO .COMPLEX #6 10/16/24 tabs ipratropium 0.5 mg-albuterol 3 mg 3 ml inhalation Q6H PRN #180 mL 10/16/24 (2.5 mg base)/3 mL nebulization soln prednisone 10 mg tablet 10 - 20 mg (1 - 2 x 10 mg) PO 10/16/24 DIRECTED #28 tabs Allergies Allergy/AdvReac Type Severity Reaction Status Date / Time No Known Drug Allergies Allergy Verified 11/22/23 18:18 [facility] Medical History Alcohol use ?Z78.9 - Other specified health status (ICD-10) Seasonal allergies ?J30.2 - Other seasonal allergic rhinitis (ICD-10) Gastroesophageal reflux disease ?K21.9 - Gastro-esophageal reflux disease without esophagitis (ICD-10) Dyslipidemia ?E78.5 - Hyperlipidemia, unspecified (ICD-10) Fatty liver disease, nonalcoholic ?K76.0 - Fatty (change of) liver, not elsewhere classified (ICD-10) Obesity (BMI 30.0-34.9) ?E66.9 - Obesity, unspecified (ICD-10) Essential hypertension ?I10 - Essential (primary) hypertension (ICD-10) Adjustment disorder with depressed mood ?F43.21 - Adjustment disorder with depressed mood (ICD-10) Tobacco use disorder ?F17.200 - Nicotine dependence, unspecified, uncomplicated (ICD-10) Stage 2 moderate COPD by GOLD classification ?J44.9 - Chronic obstructive pulmonary disease, unspecified (ICD-10) Surgical History Status post tonsillectomy and adenoidectomy ?Z90.89 - Acquired absence of other organs (ICD-10) Status post colonoscopy with polypectomy ?Z98.890 - Other specified postprocedural states (ICD-10) Family History Brother Diabetes Maternal Grandmother Diabetes Heart disease Social History Narrative: Lives with his brother. Has not worked many years due to his chronic obstructive pulmonary disease. Used to work as a cook. Smoking about 5 cigarettes per day. Tells me he drinks 2 beers per day, maybe 5 days week. Denies alcohol withdrawal symptoms. Denies use of any other street or recreational drugs, including marijuana. Designates his sister, Janine, as his power of attorney recruiter for health should that be required. Requests full resuscitation in the event of cardiopulmonary demise. Primary care physician is Dr. Oropeza, in [place], [place]. Highest level of school completed/degree received: 12th grade, no diploma Smoking Status: Never smoker Do you use any of these nicotine containing products: None Second hand tobacco smoke exposure: No How often do you have a drink containing alcohol: 2-3 times a week How many standard drinks containing alcohol do you have on a typical day: 3 or 4 AUDIT-C Alcohol total score: 4 Non-prescribed substance use: denies use Caffeine: Yes service: No Exam Const: Vital Signs, click to edit/add: Vital Signs - 24 hr 10/16/24 06:53 10/16/24 07:29 10/16/24 07:30 Temperature 97.6 F Pulse Rate 105 H 104 H Pulse Rate [Left P ulse Oximeter] 106 H Respiratory Rate 26 H Blood Pressure [Ri ght Upper Arm] 192/101 H Pulse Oximetry 88 92 91 Oxygen Delivery Me thod Room Air Documenting provider has reviewed patient's vital signs: yes Common normals: no apparent distress and alert General appearance: cooperative and well developed Other: Good historian. Able to speak in full sentences. HENMT: Common normals: normocephalic, nasal mucous membranes and turbinates normal, moist oral mucous membranes and oropharynx normal Head and scalp: normocephalic Nose: nasal mucous membranes and turbinates normal Mouth: oral and palatal mucosa normal Throat: posterior oropharynx normal Eye: Common normals: conjunctivae normal General eye: normal appearance of both eyes Conjunctiva: conjunctiva(e) normal Neck & C-Spine: Common normals: full ROM and no lymphadenopathy General: normal visual inspection Resp: Other: Mildly tachypneic with prolongation of expiration 4-1 ratio. Extensive expiratory wheezing, no obvious crackles. Cardio: Common normals: regular rate, regular rhythm, S1 normal heart sound, S2 normal heart sound and no murmurs Rate: regular rate Rhythm: regular rhythm Heart sounds: S1 normal and S2 normal GI: Common normals: Normal to inspection, nondistended, normoactive bowel sounds present Extremity: Common normals: normal to inspection and normal capillary refill Neuro: Sensorium/orientation: alert Speech: speech normal Motor exam: no movement abnormalities noted Psych: Appearance: grossly normal Attitude: engaged At tention/concentration: attention grossly intact Memory/cognition: memory grossly intact Insight: insight good Judgement: judgment good Skin: Common normals: no rashes or lesions noted General skin exam: no rashes or lesions noted Course Course ED Course: 64-year-old male with history of COPD presenting with dyspnea, wheezing and mild hypoxia suspicious for COPD exacerbation. No fever, weakness or cardiac changes. I recommended chest x-ray, EKG, viral swabs. Will administer DuoNeb, 40 of prednisone and 500 of azithromycin then reassess. If oxygen levels improved as expected, can likely discharge with typical azithromycin and prednisone cocktail but if unimproved, consider additional workup. Await findings. Differential diagnosis also including pneumonia, acute cardiac process, upper respiratory infection not excluding RSV, influenza COVID or other potential virus ease, DVT/PE, cardiac arrhythmia. Reevaluation(s) Time of Reevaluation #1: 08:20 Reevaluation #1: Patient feeling much better after DuoNeb, prednisone and azithromycin. Viral swabs are negative, reviewed with patient. Chest x-ray is reassuring other than viral process and signs of COPD. No infiltrates or cardiac disease, pneumonia or other complications. Oxygen levels are now 91% after the DuoNeb, he is feeling markedly better. I do think he is safe to discharge home, will give another 5 days of azithromycin, a 10 day taper rather than the standard 5 because of the severity of his COPD. He was counseled on smoking cessation. I have confirmed that he does have adequate albuterol and have provided him with additional DuoNeb vials for his nebulizer and discussed use of each product. Alarm symptoms reviewed that would warrant ED presentation or primary care follow-up. He verbalizes understanding and agreement. Written instructions provided. Vital Signs Vital signs: Initial Vital Signs Temperature 97.6 F 10/16/24 06:53 Temperature Source Temporal Artery Scan 10/16/24 06:53 Pulse Rate 106 H 10/16/24 06:53 Pulse Rhythm Regular 10/16/24 06:53 Respiratory Rate 26 H 10/16/24 06:53 Respiratory Depth Normal 10/16/24 06:53 Blood Pressure 192/101 H 10/16/24 06:53 Blood Pressure Mean 131 H 10/16/24 06:53 Blood Pressure Position Sitting 10/16/24 06:53 Pulse Oximetry 88 10/16/24 06:53 Oxygen Delivery Method Room Air 10/16/24 06:53 Vital Signs Temperature 97.6 F 10/16/24 06:53 Pulse Rate 106 H 10/16/24 06:53 Respiratory Rate 26 H 10/16/24 06:53 Blood Pressure 192/101 H 10/16/24 06:53 Pulse Oximetry 88 10/16/24 06:53 Oxygen Delivery Method Room Air 10/16/24 06:53 Temperature 97.6 F 10/16/24 06:53 Pulse Rate 104 H 10/16/24 07:30 Respiratory Rate 26 H 10/16/24 06:53 Blood Pressure 192/101 H 10/16/24 06:53 Pulse Oximetry 91 10/16/24 07:30 Oxygen Delivery Method Room Air 10/16/24 06:53 Medications Administered Medications: Discontinued Medications Generic Name Dose Route Start Last Admin Trade Name Freq PRN Reason Stop Dose Admin Albuterol/Ipratropium 1 neb 10/16/24 07:05 10/16/24 07:18 Iprat-Albut 0.5-2.5 Mg/3 Ml Neb IH 10/16/24 07:06 1 neb ONCE ONE Administration Azithromycin 500 mg 10/16/24 07:05 10/16/24 07:17 Azithromycin 250 Mg Tablet PO 10/16/24 07:06 500 mg ONCE ONE Administration Prednisone 40 mg 10/16/24 07:05 10/16/24 07:18 Prednisone 20 Mg Tablet PO 10/16/24 07:06 40 mg ONCE ONE Administration Medical Decision Making Lab Data Lab results reviewed: Yes I reviewed the patient's lab results Lab results narrative: Viral swabs negative, reassuring. Labs: Lab Results 10/16/24 Range/Units 07:22 SARS-CoV-2 (PCR) Negative SARS-CoV-2 (Negative) Influenza Type A (PCR) Negative PCR FLU A (Negative) Influenza Type B (PCR) Negative PCR FLU B (Negative) RSV (PCR) Negative PCR RSV (Negative) Imaging Data Chest x-ray: Attestation: I have reviewed the pertinent imaging results. My impression: No obvious focal consolidation, cardiomegaly, pleural effusions, pneumothorax. There is some central bronchial appearing inflammation but no major signs of infection. Radiologist's impression: IMPRESSION: Mild central peribronchial thickening and interstitial opacities are usually seen with viral or atypical infectious airways. Dictated by Maribel Gautam MD @ 10/16/2024 7:48:55 AM ECG Data Attestation: I personally reviewed and interpreted this ECG as follows: Prior ECG tracings: available for review Interpretation: Comparison earlier this year. Sinus rhythm rate of 86. Normal intervals and axis. No significant ST or T-wave abnormalities. Stable EKG. Discharge Plan Discharge Clinical Impression: Acute exacerbation of chronic obstructive pulmonary disease Patient Disposition: Home, Self-Care Condition: Improved Instructions: COPD (Chronic Obstructive Pulmonary Disease) (ED) Additional Instructions: I agree with you that your having a flare-up of her COPD. There does not seem to be any signs of a heart problem or pneumonia on your x-ray. I am glad that your feeling better after the DuoNeb treatment. I will send a prescription for more of those DuoNeb files. There often cheaper than your inhaler so I would recommend use those when you are feeling sick. Down you can use up to every 6 hours but you can use plain albuterol every hour if needed. Your given here daily dose of azithromycin the antibiotic today. Your next dose of that medication will be tomorrow morning. He will take 2 pills tomorrow morning and then 1 pill daily until gone for a total of 5 additional days besides today. I have also recommended that you do a longer course of prednisone just because her oxygen levels were kind of low. Your given 40 mg here in the emergency department. He will take 20 mg this afternoon and then continue as written basically 2 pills twice a day for 5 days, 1 pill twice a day for 3 days and then 1 pill daily for the last 2 days. Use your nebulizer and albuterol as needed and come back to the emergency room if there is severe shortness of breath, severe weakness, high fevers or other sign of complication. As discussed, your oxygen levels were lower with this episode it is a sign that your COPD is worsening. This would be a really great time for you to quit smoking but I do understand that that is quite difficult. I would be doing you a disservice if I did not point out this fact. Activity Level: Activity as Tolerated Discharge Diet: Regular Prescriptions: New azithromycin 250 mg tablet See Rx Instructions .ROUTE .COMPLEX Qty: 6 0RF Rx Instructions: For 250 mg dose pack: take 500 mg today (day 1), then 250 mg for 4 days (days 2-5) prednisone 10 mg tablet 10 - 20 mg PO DIRECTED Qty: 28 0RF Rx Instructions: Two pills by mouth 2 times daily for 5 days, then 1 pill 2 times daily for 3 days, then 1 pill once daily for 2 days ipratropium-albuterol 0.5 mg-3 mg(2.5 mg base)/3 mL solution for nebulization 3 ml inhalation Q6H PRNQty: 180 1RF Rx Instructions: until breathing returns to target peak flow/parameters No Action potassium chloride 20 mEq tablet extended release 20 meq PO BID Qty: 60 2RF lisinopril 20 mg tablet 20 mg PO DAILY cyanocobalamin (vitamin B-12) 1,000 mcg tablet 1,000 mcg PO DAILY amlodipine 5 mg tablet 5 mg PO DAILY lansoprazole 15 mg capsule,delayed release(DR/EC) 15 mg PO DAILY folic acid 1 mg tablet 1 mg PO DAILY fluticasone propionate [Flovent HFA] 220 mcg/actuation HFA aerosol inhaler 1 puff INHALATION BID albuterol sulfate [Ventolin HFA] 90 mcg/actuation HFA aerosol inhaler 1 puff INHALATION QID PRN (Reason: dyspnea) Anoro Ellipta 62.5-25 mcg/actuation blister with device 1 inh INHALATION DAILY ipratropium-albuterol 20-100 mcg/actuation mist 1 puff inhalation Q6H Qty: 4 0RF prednisone 20 mg Tablet 40 mg PO DAILYWM Qty: 21 0RF Rx Instructions: 40mg (2 tabs) for 5 more days. Then 1 tab (20mg) for seven days, then 1/2 tab (10mg) for eight days, followed by a new bottle of 5mg for seven days. prednisone 5 mg tablet 5 mg PO DAILY Qty: 7 0RF Rx Instructions: start after you have finished the taper of the 20mg tablets. prednisone 20 mg tablet 40 mg PO DAILY Qty: 10 0RF Follow Up/Referrals: Destiny Oropeza DO [Primary Care Provider] - Stand Alone Forms: [employer] Info Instructions
[2024-10-16 08:07] LABS: PCR FLU A Negative PCR FLU A (Negative); PCR FLU B Negative PCR FLU B (Negative); PCR RSV Negative PCR RSV (Negative); SARS PCR* Negative SARS-CoV-2 (Negative)
== END 2024-10-16 08:32 | disposition home or self-care (01) ==
PROVIDERS: Emergency Provider Family Medicine; PCP Family Medicine
DX: J44.1 Chronic obstructive pulmonary disease with (acute) exacerbation (principal)
CPT/HCPCS: 71046; 87631; 93005; 99284; A9270; J7512